=== PATIENT | female | born 1960 | race Native Hawaiian/Other Pacific Islander ===

== ENCOUNTER 2023-06-01 12:13 | Outpatient (AMB) | payer OTHER, SELFPAY ==
--- NOTE | 2023-06-01 12:36 | MHC.PC.OV ---
Vital Signs 06/01/23 12:40 Height 5 ft 9 in Weight 259 lb BMI 38.2 BP 158/100 H Blood Pressure Location Lt brachial Position Sitting Intake Visit Reasons: NPV- Medication Intake Note: New patient, medication Fingerprinter Required: No Accompanied by: Self / Same As Patient Allergies codeine Adverse Reaction (Intermediate, Verified 06/01/23 12:58) chills Medication List - Last Reconciled 06/01/23 by Claire Rodriguez MD gabapentin 300 mg PO TID omeprazole 20 mg PO DAILY Tobacco use date assessed: 06/01/23 Dental Screening Dental Screen Date: 06/01/23 Did you have a dental visit in the last 12 months?: No Did you have a dental problem in the last 6 months where you did not have access to dental care?: No Was dental information given to patient?: No HPI HPI Comments History of Present Illness Details This is a 62-year-old female with fibromyalgia, chronic GERD, obesity and thalassemia trait that comes today to establish care. She complains over right upper quadrant abdominal pain that happens when she bends forward and has history of cholecystectomy. She also has diffuse joint pain secondary to fibromyalgia stable with gabapentin as needed. Complains of bilateral hand pain and some trigger fingers. Had nerve conduction study about a year ago and would like Ortho referral for this matter. No chest pain or shortness of breath. She is obese with a BMI of 38.2 and was advised to diet and exercise to reach BMI goal less than 30. GERD stable with PPIs. Colonoscopy was about 8-9 years ago. Mammogram and bone density was over a year ago. Pap smear was about 4-5 years ago. COUNTS INCLUDE 234 BEDS AT THE [facility] Surgical History History of cholecystectomy History of tubal ligation Family History Father Diabetes Hypertension Stroke Heart murmur Mother Diabetes Hypertension Bursitis Tendonitis Arthritis Family/Other Substance use disorder Social History Housing: House Alcohol intake: current Alcohol intake frequency: holidays/special occasions only Alcohol type: other Patient Tobacco Use Status: Never used Tobacco e-Cigarette/Vaping Use: Never Used Second Hand Smoke Exposure: No service: No Current occupational status: employed Current occupational exposures/hazards: No Cognitive needs: No Hearing needs: No Vision needs: Yes Questionnaire PHQ-9 Over the last 2 weeks, how often have you been bothered by any of the following problems? 1. Little interest or pleasure in doing things: not at all 2. Feeling down, depressed, or hopeless: several days 3. Trouble falling or staying asleep, or sleeping too much: nearly every day 4. Feeling tired or having little energy: several days 5. Poor appetite or overeating: not at all 6. Feeling bad about yourself - or that you are a failure or have let yourself or your family down: not at all 7. Trouble concentrating on things, such as reading the newspaper or watching television: several days 8. Moving or speaking so slowly that other people could have noticed. Or the opposite - being so fidgety or restless that you have been moving around a lot more than usual: not at all 9. Thoughts that you would be better off or of hurting yourself in some way: not at all Total score: 6 Depression Screening Interpretation: Positive Depression Screening Follow-up: Existing condition 64122 - PHQ-9 Billing: Yes Source: Developed by Drs. Ronak Hull, Calista Bolden, Karlo Palma and colleagues, with an educational robby from [employer]. JYOTSNA-7 AMB Questionnaire JYOTSNA-7 Date JYOTSNA - 7 assessed: 06/01/23 Feeling nervous, anxious, or on edge: 2 = More than half the days Not being able to stop or control worryin = Not at all Worrying too much about different things: 2 = More than half the days Trouble relaxin = Several days Being so restless that it is hard to sit still: 0 = Not at all Becoming easily annoyed or irritable: 1 = Several days Feeling afraid as if something awful might happen: 0 = Not at all Total JYOTSNA-7 score (0-4 normal; 5-9 mild; 10-14 moderate; 15-21 severe): 6 Source: Developed by Drs. Ronak Hull, Calista Bolden, Karlo Palma and colleagues, with an educational robby from [employer]. JYOTSNA-7 Assessment Billing JYOTSNA-7 Assessment Tool: JYOTSNA-7 Assessment 58048 Review of Systems Const All systems reviewed & are unremarkable except as noted in HPI and below Eyes Reports no additional complaints, Denies change in vision and Denies other visual disturbances Card Denies chest pain at rest, Denies chest pain with activity, Denies edema, Denies irregular heart rhythm, Denies claudication, Denies dyspnea, Denies dyspnea on exertion, Denies orthopnea, Denies paroxysmal nocturnal dyspnea and Denies slow heart rate Resp Denies cough, Denies dyspnea and Denies dyspnea on exertion GI Reports abdominal pain, Denies change in bowel habits, Denies excessive flatus, Reports diarrhea, Denies nausea and Denies vomiting Denies urinary incontinence, Denies urinary hesitancy and Denies urinary urgency Musc Denies abnormal gait, Denies atrophy, Denies deformity, Reports arthralgias, Denies limited range of motion and Reports numbness Skin/Breast Denies bleeding lesions, Denies changing lesions and Denies rash Neuro Denies abnormal gait, Denies lack of coordination and Reports numbness Physical exam (Primary Care) Vital Signs: Last Vital Signs BP 158/100 H 06/01/23 12:40 BMI result Body Mass Index 38.2 Tobacco/Smoking Status: Tobacco use Status Tobacco use date assessed 06/01/23 06/01/23 12:51 Patient Tobacco Use Status Never used Tobacco 06/01/23 12:51 e-Cigarette/Vaping Use Never Used 06/01/23 12:51 PHQ-9: PHQ-9 Score PHQ-9: Total score 6 06/01/23 12:51 Depression Screening Interpretation: Positive Depression Screening Follow-up: Existing condition Eyes General: appearance normal, both eyes and all related structures Eyelids: Yes eyelids normal Conjunctivae: conjunctivae normal Neck Neck: Yes normal visual inspection and Yes supple Resp Effort & Inspection: normal respiratory effort Auscultation: clear to auscultation bilaterally Cardio Jugular venous distension: no JVD Rate: regular rate Rhythm: regular rhythm Heart sounds: S1 normal heart sound present and S2 normal heart sound present Extrem General: Yes full ROM Assessment and Plan Assessment & Plan (1) Chronic GERD: Code(s): K21.9 - Gastro-esophageal reflux disease without esophagitis Plan: Continue PPIs (2) Class 2 obesity with body mass index (BMI) of 38.0 to 38.9 in adult: Code(s): E66.9 - Obesity, unspecified; Z68.38 - Body mass index [BMI] 38.0-38.9, adult Plan: Start diet and exercise. BMI goal is less than 30. (3) Fibromyalgia: Code(s): M79.7 - Fibromyalgia Plan: Continue gabapentin (4) Right upper quadrant abdominal pain: Code(s): R10.11 - Right upper quadrant pain Plan: Ultrasound ordered (5) Thalassemia trait: Code(s): D56.3 - Thalassemia minor Plan: Labs ordered Orders: Orders US abdomen comp w elastography Today R10.11 - Right upper quadrant pain Comprehensive Crozier. Panel Fast Today E66.9 - Obesity, unspecified, Z68.38 - Body mass index [BMI] 38.0-38.9, adult IRON PROFILE Today D56.3 - Thalassemia minor, D64.9 - Anemia, unspecified Lipid Panel Today E66.9 - Obesity, unspecified, E78.5 - Hyperlipidemia, unspecified, Z68.38 - Body mass index [BMI] 38.0-38.9, adult Thyroid Stimulating Hormone Today E66.9 - Obesity, unspecified, Z68.38 - Body mass index [BMI] 38.0-38.9, adult Vitamin D 25-OH Total Today E55.9 - Vitamin D deficiency, unspecified Complete Blood Count Auto Diff Today D56.3 - Thalassemia minor, D64.9 - Anemia, unspecified XR DEXA axial skeleton Today N95.9 - Unspecified menopausal and perimenopausal disorder MM screening mammo BI Today Z12.31 - Encounter for screening mammogram for malignant neoplasm of breast Hemoglobin Electrophoresis Today D56.3 - Thalassemia minor Reticulocyte Count Today D56.3 - Thalassemia minor Referrals CAUSTIC PREPARER Referral Z12.4 - Encounter for screening for malignant neoplasm of cervix Orthopedics Referral M65.30 - Trigger finger, unspecified finger Coding Level of Care Code New Pt Level 4 (95237) Diagnoses Chronic GERD K21.9 Class 2 obesity with body mass index (BMI) of 38.0 to 38.9 in adult E66.9; Z68.38 Fibromyalgia M79.7 Right upper quadrant abdominal pain R10.11 Thalassemia trait D56.3 Additional Codes JYOTSNA-7 Assessment Billing - JYOTSNA-7 Assessment Tool: JYOTSNA-7 Assessment 33470 ([id number]) Time Spent (min) 24
[2023-06-01 12:40] VITALS: BP 158/100; BMI 38.2
== END 2023-06-01 13:12 | disposition home or self-care (01) ==
PROVIDERS: PCP Internal Medicine; Visit Provider Internal Medicine
DX: K21.9 Gastro-esophageal reflux disease without esophagitis (principal); E66.9 Obesity, unspecified; Z68.38 Body mass index [BMI] 38.0-38.9, adult; M79.7 Fibromyalgia; R10.11 Right upper quadrant pain; D56.3 Thalassemia minor
CPT/HCPCS: 99204

== ENCOUNTER 2023-06-22 09:20 | Outpatient (REF) | payer OTHER, SELFPAY ==
--- NOTE | ~2023-06-22 | US_ITS ---
EXAMINATION: US COMPLETE ABDOMEN WITH LIVER ELASTOGRAPHY CLINICAL INFORMATION: Morbid obesity. COMPARISON: None available. TECHNIQUE: Real-time imaging of the abdominal viscera. Noninvasive ultrasound liver fibrosis assessment is performed using Gurdeep ElastPQ point quantification shear wave elastography (2D-SWE) with a C5-2 MHz transducer. Multiple elastography samples are obtained. FINDINGS: PANCREAS: Normal. The visualized pancreatic head and body are normal in appearance. The remainder of the pancreas is obscured from visualization by the overlying bowel gas. ABDOMINAL AORTA: The proximal, middle, and distal aortic segments are normal in caliber. INFERIOR VENA CAVA: Visualized portions are normal. LIVER: Normal. The liver demonstrates normal size, contour and echogenicity. No focal lesion or intrahepatic biliary duct dilatation. The right lobe measures 14.5 cm in length. The left lobe measures 12.5 cm in length. Portal flow is towards the liver (hepatopetal). Shear wave liver elastography median stiffness is 1.3 m/s (reference: normal median stiffness is 1.3 m/s or less). IQR/median stiffness to assess sampling precision is 0.09 (reference: good quality data set is IQR/median stiffness of 0.15 or less). GALLBLADDER: Surgically absent. COMMON BILE DUCT: Normal in caliber measuring 0.8 cm in diameter. RIGHT KIDNEY: Normal. No hydronephrosis. No renal calculi or focal parenchymal lesions. The kidney measures 10.8 cm in maximum dimension. LEFT KIDNEY: Normal. No hydronephrosis. No renal calculi or focal parenchymal lesions. The kidney measures 10.1 cm in maximum dimension. SPLEEN: Normal. The spleen measures 9 point cm in maximum dimension. FREE FLUID: None. US/US abdomen comp w elastography IMPRESSION: 1. There is generalized increase in hepatic echotexture, consistent with fatty infiltration or hepatocellular disease. Please correlate clinically. No focal hepatic mass or intrahepatic biliary dilatation is seen. 2. Liver elastography: In the absence of other known clinical signs, measurements rule out compensated advanced chronic liver disease. If there are known clinical signs, further testing may be needed for confirmation. REFERENCE: Society of Radiologists in Ultrasound Liver Stiffness Thresholds (2020): LIVER STIFFNESS THRESHOLDS: *Liver Stiffness equal or less than 1.3 m/s: High probability of being normal. *Liver Stiffness less than 1.7 m/s: In the absence of other known clinical signs, rules out compensated advanced chronic liver disease. *Liver Stiffness 1.7-2.1 m/s: Suggestive of compensated advanced chronic liver disease but need further test for confirmation. *Liver Stiffness over 2.1 m/s: Rules in compensated advanced chronic liver disease. *Liver Stiffness over 2.4 m/s: Suggestive of clinically significant portal hypertension. QUALITY OF DATA SET: *IQR/Median value equal or less than 0.15 implies a quality data set. *IQR/Median value over 0.15 implies a poor quality data set. SIGNIFICANT CHANGE FROM PRIOR EXAM: Significant change if liver stiffness measurement is 10% or greater from prior exam. OTHER CONSIDERATIONS: The stage of liver fibrosis may be overestimated in the setting of acute hepatitis, liver inflammation, elevated liver function tests, hepatic vascular congestion, obstructive cholestasis, non-fasting state, and infiltrative diseases such as amyloidosis and lymphoma. In some patients with NAFLD, the liver stiffness thresholds for compensated advanced chronic liver disease may be lower. In causes other than viral hepatitis and NAFLD, liver stiffness thresholds are not well established.
[2023-06-22 10:44] LABS: MANUAL DIFF FLAG NO
[2023-06-22 11:53] LABS: Basophils Percent Auto 0.4 % (0-2); Eosinophils Absolute Auto 0.2 X10*3/uL (0.0-0.4); Hemoglobin 11.3 g/dl (12.0-16.0); Imm Gran Abs Auto 0.03 X10*3/uL (0.00-0.03); Imm Gran Pct Auto 0.4 % (0.0-0.4); Immature Retic Fraction 23.5 % (3.0-15.9); Lymphocytes Percent Auto 29.6 % (20-40); Mean Corpuscular HGB Conc 29.7 g/dl (31.0-35.0); Mean Corpuscular Hemoglobin 21.5 pg (27.0-33.0); Mean Corpuscular Volume 72.2 fL (80.0-98.0); Mean Platelet Volume 10.3 fL (9.4-12.3); Monocytes Absolute Auto 0.6 X10*3/uL (0.1-1.2); Neutrophils Percent Auto 57.6 % (45-73); Platelet Count 306 X10*3/uL (160-400); Red Blood Count 5.26 X10*6/uL (4.20-5.50); Red Cell Distribution Width 18.5 % (11.0-16.0); Retic HGB Equivalent 25.7 pg (30.0-35.0); Reticulocyte Percent 1.6 % (0.5-1.8); Reticulocytes Absolute 0.084 X10*6/uL (0.026-0.095); White Blood Count 6.9 X10*3/uL (4.8-10.8)
[2023-06-22 12:33] LABS: Alanine Aminotransferase 15 U/L (0-31); Albumin Level 4.2 g/dL (3.5-5.0); Alkaline Phosphatase 72 U/L (39-117); Anion Gap 14 (12-20); Aspartate Amino Transferase 16 U/L (5-31); Bilirubin Total 0.5 mg/dL (0.0-1.0); Blood Urea Nitrogen 14 mg/dL (9-16); Calcium 9.4 mg/dL (8.4-10.2); Carbon Dioxide 24 mmol/L (22-29); Chloride 106 mmol/L (96-108); Cholesterol 183 mg/dL; Estimated Glomerular Filt Rate 47; Glucose Fasting 92 mg/dL (60-99); HDL Cholesterol 48 mg/dL; Iron 75 mcg/dL (30-160); LDL Cholesterol Calculated 118 mg/dl; Percent Iron Saturation 28 % (15-50); Potassium 4.1 mmol/L (3.3-5.1); Sodium 140 mmol/L (135-145); Total Iron Binding Capacity 265 mcg/dL (228-428); Total Protein 7.6 g/dL (6.5-8.0); Triglycerides 86 mg/dL; Unsaturated Iron Binding 190 ug/dL
[2023-06-22 12:54] LABS: Thyroid Stimulating Hormone 1.85 uIU/mL (0.32-4.0); Vitamin D 25-OH Total 23.6 ng/mL (>30)
[2023-06-25 17:18] LABS: Hematocrit 36.1 % (35.0-45.0); Hemoglobin 11.3 g/dL (11.7-15.5); MCH 21.8 pg (27.0-33.0); MCV 69.6 fL (80.0-100.0); RBC 5.19 Million/uL (3.80-5.10); RDW 17.1 % (11.0-15.0)
== END 2023-06-22 09:21 | disposition home or self-care (01) ==
LOC: HO.US 09:20
PROVIDERS: PCP Internal Medicine; Visit Provider Internal Medicine
DX: R10.11 Right upper quadrant pain (principal); E66.9 Obesity, unspecified; Z68.38 Body mass index [BMI] 38.0-38.9, adult; E78.5 Hyperlipidemia, unspecified; E55.9 Vitamin D deficiency, unspecified; D56.3 Thalassemia minor; D64.9 Anemia, unspecified
CPT/HCPCS: 36415; 76705; 76981; 80053; 80061; 82306; 83020; 83540; 84443; 85014; 85018; 85025; 85041; 85045

== ENCOUNTER 2023-06-24 16:20 | Outpatient (AMB) | payer OTHER, SELFPAY ==
[2023-06-24 16:33] VITALS: BP 162/92; PULSE 83; O2SAT 97; BMI 37.8
--- NOTE | 2023-06-24 16:33 | MHC.PC.OV ---
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 Accompanied by: Self / Same As Patient Allergies codeine Adverse Reaction (Intermediate, Verified 06/24/23 16:59) chills Medication List - Last Reconciled 06/24/23 by Claire Rodriguez MD gabapentin 300 mg PO TID omeprazole 20 mg PO DAILY Tobacco use date assessed: 06/01/23 Dental Screening Dental Screen Date: 06/24/23 Did you have a dental visit in the last 12 months?: No Did you have a dental problem in the last 6 months where you did not have access to dental care?: Yes Was dental information given to patient?: Patient has dentist HPI HPI Comments History of Present Illness Details This is a 62-year-old female with fibromyalgia still complains right upper quadrant abdominal pain occasionally associated with diarrhea been present for few months. She had cholecystectomy in the past. Ultrasound shows fatty liver versus hepatocellular disease but her liver enzymes are normal. I will refer her to Gastroenterology and order cholestyramine as needed for her diarrhea. Fibromyalgia still present and she admits not taking gabapentin a medically basis due to fatigue and tiredness. No chest pain or shortness of breath. Blood pressure is elevated and will be recheck in 3 weeks by nurse navigator. [facility] Surgical History History of cholecystectomy History of tubal ligation Family History Father Diabetes Hypertension Stroke Heart murmur Mother Diabetes Hypertension Bursitis Tendonitis Arthritis Family/Other Substance use disorder Social History Housing: House Alcohol intake: current Alcohol intake frequency: holidays/special occasions only Alcohol type: other Patient Tobacco Use Status: Never used Tobacco e-Cigarette/Vaping Use: Never Used Second Hand Smoke Exposure: No service: No Current occupational status: employed Current occupational exposures/hazards: No Cognitive needs: No Hearing needs: No Vision needs: Yes Questionnaire JYOTSNA-7 AMB Questionnaire JYOTSNA-7 Date JYOTSNA - 7 assessed: 06/01/23 Source: Developed by Drs. Ronak Hull, Calista Bolden, Karlo Palma and colleagues, with an educational robby from [employer]. Review of Systems Const All systems reviewed & are unremarkable except as noted in HPI and below Eyes Reports no additional complaints, Denies change in vision and Denies other visual disturbances Card Denies chest pain at rest, Denies chest pain with activity, Denies edema, Denies irregular heart rhythm, Denies claudication, Denies dyspnea, Denies dyspnea on exertion, Denies orthopnea, Denies paroxysmal nocturnal dyspnea and Denies slow heart rate Resp Denies cough, Denies dyspnea and Denies dyspnea on exertion GI Reports abdominal pain, Denies change in bowel habits, Denies excessive flatus, Reports diarrhea, Denies nausea and Denies vomiting Denies urinary incontinence, Denies urinary hesitancy and Denies urinary urgency Musc Denies abnormal gait, Denies atrophy, Denies deformity and Denies limited range of motion Skin/Breast Denies bleeding lesions, Denies changing lesions and Denies rash Neuro Denies abnormal gait and Denies lack of coordination Physical exam (Primary Care) Vital Signs: Last Vital Signs Pulse 83 06/24/23 16:33 BP 160/90 H 06/24/23 17:25 Pulse Ox 97 06/24/23 16:33 Oxygen Delivery Method Room Air 06/24/23 16:33 BMI result Body Mass Index 37.8 Tobacco/Smoking Status: Tobacco use Status Tobacco use date assessed 06/01/23 06/24/23 16:34 Patient Tobacco Use Status Never used Tobacco 06/24/23 16:34 e-Cigarette/Vaping Use Never Used 06/24/23 16:34 Eyes General: appearance normal, both eyes and all related structures Eyelids: Yes eyelids normal Conjunctivae: conjunctivae normal Neck Neck: Yes normal visual inspection and Yes supple Resp Effort & Inspection: normal respiratory effort Auscultation: clear to auscultation bilaterally Cardio Jugular venous distension: no JVD Rate: regular rate Rhythm: regular rhythm Heart sounds: S1 normal heart sound present and S2 normal heart sound present GI Palpation (GI): Soft to palpation and Tenderness to palpation present (GI) in the RUQ Extrem General: Yes full ROM Results AMB Urinalysis, Automated UA Leukoctes 0 Layla/uL Last Edit by VENANCIO Villegas on 06/24/23 17:06 UA Nitrite Negative Last Edit by VENANCIO Villegas on 06/24/23 17:06 UA Urobilinogen 0.2 mg/dL Last Edit by VENANCIO Villegas on 06/24/23 17:06 UA Protein 0 mg/dL Last Edit by VENANCIO Villegas on 06/24/23 17:06 UA pH 6.0 Last Edit by VENANCIO Villegas on 06/24/23 17:06 UA Blood 0 Chago/uL Last Edit by VENANCIO Villegas on 06/24/23 17:06 UA Specific Hamer 1.030 Last Edit by VENANCIO Villegas on 06/24/23 17:06 UA Ketone Negative Last Edit by VENANCIO Villegas on 06/24/23 17:06 UA Bilirubin 0 mg/dL Last Edit by VENANCIO Villegas on 06/24/23 17:06 UA Glucose 0 mg/dL Last Edit by VENANCIO Villegas on 06/24/23 17:06 Results Reviewed Results Reviewed: Laboratory Last Values Urine pH (Auto) 6.0 06/24/23 16:53 Specific Hamer (Auto) 1.030 06/24/23 16:53 Urine Protein (Auto) 0 mg/dL 06/24/23 16:53 Glucose (UA)(Auto) 0 mg/dL 06/24/23 16:53 Urine Ketones (Auto) Negative 06/24/23 16:53 Urine Blood (Auto) 0 Chago/uL 06/24/23 16:53 Urine Nitrite (Auto) Negative 06/24/23 16:53 Urine Bilirubin (Auto) 0 mg/dL 06/24/23 16:53 Urine Urobilinogen (Auto) 0.2 mg/dL 06/24/23 16:53 Leukocyte Esterase (Auto) 0 Layla/uL 06/24/23 16:53 Assessment and Plan Assessment & Plan (1) Right upper quadrant abdominal pain: Code(s): R10.11 - Right upper quadrant pain Plan: Referred to Gastroenterology (2) Fibromyalgia: Code(s): M79.7 - Fibromyalgia Plan: Continue gabapentin Orders: Orders AMB Urinalysis Automated Today R10.9 - Unspecified abdominal pain Referrals Gastroenterology Referral R10.11 - Right upper quadrant pain Medications: New cholestyramine (with sugar) 4 gram administer w/meal; avoid other meds within 1hr before or 4-6hr after dose 4 grams PO DAILY PRN 60 ea 0RF diarrhea 60 days Coding Level of Care Code Est Pt Level 3 (29793) Diagnoses Right upper quadrant abdominal pain R10.11 Fibromyalgia M79.7 Time Spent (min) 19
[2023-06-24 17:25] VITALS: BP 160/90
== END 2023-06-24 17:08 | disposition home or self-care (01) ==
PROVIDERS: PCP Internal Medicine; Visit Provider Internal Medicine
DX: R10.11 Right upper quadrant pain (principal); M79.7 Fibromyalgia; R10.9 Unspecified abdominal pain
CPT/HCPCS: 81003; 99213

== ENCOUNTER 2023-07-15 10:02 | Outpatient (AMB) | payer OTHER, SELFPAY ==
--- NOTE | 2023-07-15 10:16 | MHC.OFFVIS ---
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 presents today for her left thumb, middle and ring finger. States she is experiencing pain in wrist that radiates to her forearm. Also mentioned that she notices her finger go side ways when she is carrying a heavy bag, has difficulty grabbing, and twisting of wrist. This has been ongoing for the last 13 yrs and has gotten worse over time. Also has numbness that increases at night time. 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 She complains primarily of pain in the dorsal aspect of her left hand which extends dorsally up her wrist and the entire length of her left forearm. She says this pain is worse with more frequent activities. She says this pain has been present for ~10 years and has been worsening over the last ~2 years. The pain radiates up into her shoulder at times. She complains of occasional cramping in her hands from overuse, particularly typing for long periods or while driving a car. She denied numbness and tingling in her hands She reports a previous NCS about 2-3 years ago which did not show any carpal or cubital tunnel syndrome She has a hx of Fibromyalgia and cervical and lumbar spondylosis [facility] Surgical History History of cholecystectomy History of tubal ligation Family History Father Diabetes Hypertension Stroke Heart murmur Mother Diabetes Hypertension Bursitis Tendonitis Arthritis Family/Other Substance use disorder Social History Housing: House Alcohol intake: current Alcohol intake frequency: holidays/special occasions only Alcohol type: other Patient Tobacco Use Status: Never used Tobacco e-Cigarette/Vaping Use: Never Used Second Hand Smoke Exposure: No service: No Current occupational status: employed Current occupational exposures/hazards: No Cognitive needs: No Hearing needs: No Vision needs: Yes Review of Systems Const All systems reviewed & are unremarkable except as noted in HPI and below Physical Exam Vital Signs: BMI result Body Mass Index 37.7 Const General: cooperative, healthy appearing and no acute distress Orientation/consciousness: patient oriented x3 HEENT Head: Yes normocephalic and Yes atraumatic Eyes EOM: EOMs intact bilaterally Resp Effort & Inspection: normal respiratory effort and able to speak in complete sentences Cardio Jugular venous distension: no JVD Skin General skin exam: turgor normal Rashes: no rashes Neuro General: patient oriented x3 Extrem Other: Evaluation of Left Upper Extremity: The patient is alert, oriented, and in no acute distress Neuro: Median, Ulnar, Radial nerves motor and sensory intact and sensation is normal to the tips of all digits Vascular: Cap refill brisk ROM: She can make a fist and extend all her digits No locking or catching Mild discomfort in the dorsal forearm with resisted wrist extension Minimal discomfort with resisted finger extension No pain with resisted wrist flexion No pain with resisted finger flexion She was most tender over the finger and wrist extensor muscle bellies in the dorsal forearm. She was not particularly tender over the extensor origin just distal to the lateral epicondyle. She has some mild tenderness over the finger and wrist extensor tendons in the distal forearm. There is no swelling in this area. She had smooth and painful active use of the tendons with active wrist and finger extension. Smooth and symmetrical wrist flexion extension and prono-supination that did not appear to be particularly painful. She did have some discomfort in the dorsal forearm when she was bring her left wrist into full flexion. Skin: No lacerations or abrasions. General: No Ecchymosis. No Erythema or evidence of infection. Psych Appearance: grossly normal Affect: normal affect Attitude: cooperative Assessment & Plan Assessment & Plan (1) Left arm pain: Code(s): M79.602 - Pain in left arm (2) Cramping of hands: Code(s): R25.2 - Cramp and spasm Plan Assessment & Plan: 1. Left dorsal forearm pain, muscular and musculotendinous Worse with activities Not particularly tender over the extensor origin Mild discomfort with resisted wrist extension and no pain with resisted finger extension Mild nonfocal tenderness over dorsal wrist and finger extensors in the distal forearm 2. 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 I educated her about these conditions Do not see any operative indications or indications for injections at this time. I ordered OT hand therapy to work on stretching & strengthening exercises I discussed activity modification, she should limit or avoid any activities which cause her pain She can follow up p.r.n. Scribed for Katarina Amado MD by Joao Nava, medical pathology teacher, on 07/15/23 at 11:10 AM, EST. Coding Level of Care Code New Pt Level 4 (22269) Diagnoses Left arm pain M79.602 Cramping of hands R25.2
[2023-07-15 10:17] VITALS: BMI 37.7
== END 2023-07-15 11:12 | disposition home or self-care (01) ==
PROVIDERS: PCP Internal Medicine; Visit Provider Orthopaedic Surgery
DX: M79.602 Pain in left arm (principal); R25.2 Cramp and spasm
CPT/HCPCS: 99203

== ENCOUNTER → 2023-07-15 10:02 | Outpatient (BNVA) | payer OTHER, SELFPAY | PROVIDERS: PCP Internal Medicine; Visit Provider Orthopaedic Surgery ==

== ENCOUNTER 2023-07-16 08:55 | Outpatient (REF) | payer OTHER, SELFPAY ==
--- NOTE | ~2023-07-16 | MM_ITS ---
EXAMINATION: BONE DENSITOMETRY CLINICAL INDICATION: Menopause. COMPARISON: This is the patient's baseline examination. TECHNIQUE: Using a BrightEdge DXA System (software version: 13.1) manufactured by [employer], dual-energy x-ray absorptiometry was performed of the lumbar spine and left hip. The images are of good technical quality. Summary results are attached. FINDINGS: LEFT FEMUR, NECK: BMD 0.985 g/cm2, Z-score 0.1, T-score -0.4, normal. LEFT FEMUR, TOTAL: BMD 1.004 g/cm2, Z-score 0.1, T-score 0.0, normal. AP SPINE L1-L4: BMD 1.426 g/cm2, Z-score 2.2, T-score 2.1, normal. IDENTIFIED RISK FACTORS: Menopause, height loss. HISTORY OF FRACTURE: None listed. MEDICATIONS: Multivitamin. MM/XR DEXA axial skeleton IMPRESSION: 1. DIAGNOSIS: Normal bone density based on the lowest T-score value of -0.4 in the femoral neck applying World Health Organization criteria. 2. 10-YEAR FRACTURE RISK PREDICTION, FRAX: According to the guidelines, FRAX calculation should only be performed on patients in the osteopenia bone density category. Therefore, FRAX was not performed on this patient. 3. Treatment Recommendations: NOF guidelines recommend consideration for treatment in postmenopausal women and men age 50 and older presenting with the following: -A hip or vertebral (clinical or morphometric) fracture. -T-score less than or equal to -2.5 at the femoral neck or spine after appropriate evaluation to exclude secondary causes. -Low bone mass at the hip or spine and a 10-year fracture probability by FRAX of greater than or equal to 3% for hip fracture or greater than or equal to 20% for major osteoporotic fracture based on the [place] adapted WHO algorithm. 4. Other Recommendations: All treatment decisions require clinical judgment and consideration of individual patient factors, including patient preferences, comorbidities, previous drug use, risk factors not captured in the FRAX model (e.g. frailty, falls, vitamin D deficiency, increased bone turnover, interval significant decline in bone density) and possible under or overestimation of fracture risk by FRAX. FUTURE SCAN RECOMMENDATION: People with diagnosed cases of osteoporosis or at high risk for fracture should have regular bone mineral density tests. For patients eligible for Medicare, routine testing is allowed once every 2 years. The testing frequency can be increased to one year for patients who have rapidly progressing disease, those who are receiving or discontinuing medical therapy to restore bone mass, or have additional risk factors.
--- NOTE | ~2023-07-16 | MM_ITS ---
EXAMINATION: MM SCREENING DIGITAL BREAST TOMOSYNTHESIS, BILATERAL CLINICAL INFORMATION: Screening. Asymptomatic. COMPARISON: Mammography: This study is compared with prior exams dating back to 2013. TECHNIQUE: Digital breast tomosynthesis is performed in both the craniocaudal and mediolateral oblique views along with computer-aided detection (CAD). Synthesized 2D images are generated from the tomosynthesis. FINDINGS: There are scattered areas of fibroglandular density (ACR BI-RADS breast composition Category b). There are no significant masses, abnormal calcifications, or other abnormalities. MM/MM tomosynthesis screening BI IMPRESSION: No mammographic evidence of malignancy. ASSESSMENT: BI-RADS BI-RADS 1 - Negative RECOMMENDATION: Routine annual mammography screening. 1 year F/U This examination should not preclude the clinical evaluation of a suspicious palpable abnormality. This patient's information was entered into a reminder system with a target due date for their next mammogram.
== END 2023-07-16 08:56 | disposition home or self-care (01) ==
LOC: HO.MAMMO 08:55
PROVIDERS: PCP Internal Medicine; Visit Provider Internal Medicine
DX: Z12.31 Encounter for screening mammogram for malignant neoplasm of breast (principal); Z13.820 Encounter for screening for osteoporosis; Z78.0 Asymptomatic menopausal state
CPT/HCPCS: 77063; 77067; 77080

== ENCOUNTER → 2023-07-16 09:15 | Outpatient (BNV) | payer OTHER, SELFPAY | PROVIDERS: PCP Internal Medicine; Visit Provider Radiology Diagnostic Radiology | DX: Z12.31 Encounter for screening mammogram for malignant neoplasm of breast (principal) | CPT/HCPCS: 77063; 77067; 77080 ==

== ENCOUNTER 2023-08-14 11:18 | Outpatient (AMB) | payer OTHER, SELFPAY ==
[2023-08-14 11:25] VITALS: BP 134/72; PULSE 88; BMI 36.8
--- NOTE | 2023-08-14 11:25 | A.OFFVIS_ITS ---
Intake Vital Signs 08/14/23 11:25 Height 5 ft 9.5 in Weight 253 lb BMI 36.8 BP 134/72 Blood Pressure Location Lt brachial Position Sitting Pulse 88 Intake Visit Reasons: Right upper quadrant pain Intake Note: Patient new consult for RUQ pain. Patient cc: RUQ pain with a lump, Nauseas on and off, GERD, diarrhea and abdominal bloating on and off. Denies any other GI issues. Line Builder Required: No Accompanied by: Self / Same As Patient Allergies codeine Adverse Reaction (Intermediate, Verified 08/14/23 11:24) chills HPI Right upper quadrant pain HPI Details 63-year-old female with past medical his tory of migraines, thalassemia trait, lumbar spine the low cysts, fibromyalgia, obesity, chronic GERD, anemia is here today for initial consultation. Patient will send to us by her PCP for evaluating her right upper quadrant discomfort. Patient reports that her grandmother had stomach cancer and her father had pre cancerous polyps. Patient had colonoscopy 5 years ago at [facility] that was normal no polyps found. Patient had cholecystectomy about 10 years ago. Also 10 years ago patient was diagnosed with H pylori and treated with antibiotics. Currently patient reports right upper quadrant pain that is not related to food. Patient states that sometimes the pain is so strong that she can not even bend over. Sometimes the pain wakes her up and she has to be in a certain position to feel better. Patient denies any nausea or vomiting. Patient reports that she moves her bowels every morning after she has coffee. Usually few bowel movements more on the loose side. Occasionally patient reports that she will get bloated depending on what she eats. Patient denies acid reflux at this time. Patient denies having pain anywhere also except for right upper quadrant. Patient denies melena, hematochezia, unintentional weight loss or ribbon like stools. Patient denies dyspepsia, dysphagia or odynophagia. Patient had ultrasound with elastography ordered by PCP on July 16 that show hepatic steatosis, normal CBD and no other acute findings. [facility] Surgical History History of cholecystectomy History of tubal ligation Family History Father Diabetes Hypertension Stroke Heart murmur Mother Diabetes Hypertension Bursitis Tendonitis Arthritis Family/Other Substance use disorder Social History Housing: House Alcohol intake: current Alcohol intake frequency: holidays/special occasions only Alcohol type: other Patient Tobacco Use Status: Never used Tobacco e-Cigarette/Vaping Use: Never Used Second Hand Smoke Exposure: No service: No Current occupational status: employed Current occupational exposures/hazards: No Cognitive needs: No Hearing needs: No Vision needs: Yes Review of Systems Const Denies weight gain and Denies weight loss ENT Reports no additional complaints, Denies dysphagia and Denies odynophagia Card Reports no additional complaints Resp Reports no additional complaints GI Reports abdominal pain (RUQ), Denies belching, Denies melena, Reports bloating, Denies change in bowel habits, Denies dysphagia, Denies excessive flatus, Denies dyspepsia, Denies heartburn, Denies diarrhea, Reports loose stools, Denies nausea, Denies odynophagia and Denies vomiting Reports no additional complaints Musc Reports no additional complaints Neuro Reports no additional complaints Psych Reports no additional complaints Endo Reports no additional complaints Physical Exam Vital Signs: Last Vital Signs Pulse 88 08/14/23 11:25 BP 134/72 08/14/23 11:25 BMI result Body Mass Index 36.8 Const General: healthy appearing, no acute distress and well developed Nutritional Appearance: obese Orientation/consciousness: patient oriented x3 HEENT Head: Yes normal to inspection, Yes normocephalic and Yes atraumatic Face and sinus: Yes normal facial exam Mouth: Normal oral and palatal mucosa present Throat: Yes posterior oropharynx normal, Yes tonsils normal and Yes uvula midline Eyes General: appearance normal, both eyes and all related structures Neck Neck: Yes normal visual inspection, Yes full ROM and Yes trachea midline Thyroid: Thyroid normal Resp Effort & Inspection: normal respiratory effort, able to speak in complete sentences, no tracheal deviation and symmetric chest movement Auscultation: clear to auscultation bilaterally Cardio Rate: regular rate Heart sounds: S1 normal heart sound present and S2 normal heart sound present GI Inspection: Yes normal to inspection, No distended and Yes obesity Palpation (GI): Soft to palpation, not firm, nontender and No hepatosplenomegaly present Auscultation: Hyperactive bowel sounds present General: Yes no CVA tenderness Back/Spine/Pelvis Back: no CVA tenderness Skin General skin exam: elasticity normal, turgor normal and dry skin Neuro General: patient oriented x3 Psych Appearance: grossly normal Mental Status: mental status grossly normal Speech and movement: Normal speech and movement present Results Reviewed Results Reviewed: ABDOMINAL ULTRASOUND WITH LIVER ELASTOGRAPHY 07/16/2023 FINDINGS: PANCREAS: Normal. The visualized pancreatic head and body are normal in appearance. The remainder of the pancreas is obscured from visualization by the overlying bowel gas. ABDOMINAL AORTA: The proximal, middle, and distal aortic segments are normal in caliber. INFERIOR VENA CAVA: Visualized portions are normal. LIVER: Normal. The liver demonstrates normal size, contour and echogenicity. No focal lesion or intrahepatic biliary duct dilatation. The right lobe measures 14.5 cm in length. The left lobe measures 12.5 cm in length. Portal flow is towards the liver (hepatopetal). Shear wave liver elastography median stiffness is 1.3 m/s (reference: normal median stiffness is 1.3 m/s or less). IQR/median stiffness to assess sampling precision is 0.09 (reference: good quality data set is IQR/median stiffness of 0.15 or less). GALLBLADDER: Surgically absent. COMMON BILE DUCT: Normal in caliber measuring 0.8 cm in diameter. RIGHT KIDNEY: Normal. No hydronephrosis. No renal calculi or focal parenchymal lesions. The kidney measures 10.8 cm in maximum dimension. LEFT KIDNEY: Normal. No hydronephrosis. No renal calculi or focal parenchymal lesions. The kidney measures 10.1 cm in maximum dimension. SPLEEN: Normal. The spleen measures 9 point cm in maximum dimension. FREE FLUID: None. US/US abdomen comp w elastography IMPRESSION: 1. There is generalized increase in hepatic echotexture, consistent with fatty infiltration or hepatocellular disease. Please correlate clinically. No focal hepatic mass or intrahepatic biliary dilatation is seen. 2. Liver elastography: In the absence of other known clinical signs, measurements rule out compensated advanced chronic liver disease. If there are known clinical signs, further testing may be needed for confirmation. Assessment & Plan Assessment & Plan (1) Right upper quadrant abdominal pain: Code(s): R10.11 - Right upper quadrant pain Plan: Right upper quadrant nontender. Status post cholecystectomy. Hyperactive bowel sounds, possible gas trapping pain in hepatic flexure. (2) IBS (irritable bowel syndrome): Code(s): K58.9 - Irritable bowel syndrome without diarrhea Qualifiers: Irritable bowel syndrome type: with both diarrhea and constipation Qualified Code(s): K58.2 - Mixed irritable bowel syndrome Plan: Patient reports occasional postprandial abdominal bloating occasionally patient will have loose stools specially after having coffee in the morning. Patient does admit to have milk in her coffee. Discussed with patient trying lactose free products. Low FODMAP diet discussed with patient. List of food recommended as well as food to avoid given to patient. Will check lipase, GGT, pancreatic insufficiency, transglutaminase and vitamin B12 and folate. (3) Postprandial abdominal bloating: Code(s): R14.0 - Abdominal distension (gaseous) Plan: Occasional postprandial abdominal bloating again as mentioned above discussed with patient avoiding dietary triggers. Patient will be given Citrucel and Senokot to help her evacuate her bowels better. I will see patient in 6 months, sooner on as needed basis. Patient is agreeable to this plan and verbalizes understanding of instructions. She was given the opportunity to ask questions and all questions answered. Thank you for allowing me to participate in her care Orders: Orders H Pylori Breath Test Today Lipase Today R10.9 - Unspecified abdominal pain Gamma Glutamyl Transpeptidase Today R74.8 - Abnormal levels of other serum enzymes Vitamin D 25-OH (D2 and D3) Today E55.9 - Vitamin D deficiency, unspecified Pancreatic Elastase-1 Today R10.9 - Unspecified abdominal pain Transglutaminase Ab IgG Today R10.9 - Unspecified abdominal pain Transglutaminase IgA Today R10.9 - Unspecified abdominal pain Vitamin B12 and Folate Today R19.7 - Diarrhea, unspecified Medications: New methylcellulose (laxative) (Citrucel) take it with full glass of water 500 mg PO DAILY 30 tabs 2RF K59.00 - Constipation, unspecified sennosides (Natural Senna Laxative) 17.2 mg (2 x 8.6 mg) PO BEDTIME 60 tabs 3RF constipation K59.00 - Constipation, unspecified Coding Level of Care Code New Pt Level 4 (73422) Diagnoses Right upper quadrant abdominal pain R10.11 Irritable bowel syndrome with both constipation and diarrhea K58.2 Irritable bowel syndrome type: with both diarrhea and constipation Postprandial abdominal bloating R14.0 Time Spent (min) 45 Comment 30 minutes spent with patient and additional 15 minutes spent reviewing her records
== END 2023-08-14 12:09 | disposition home or self-care (01) ==
PROVIDERS: PCP Internal Medicine; Visit Provider Nurse Practitioner Family
DX: R10.11 Right upper quadrant pain (principal); K58.2 Mixed irritable bowel syndrome; R14.0 Abdominal distension (gaseous)
CPT/HCPCS: 99204

== ENCOUNTER → 2023-08-14 11:18 | Outpatient (BNVA) | payer OTHER, SELFPAY | PROVIDERS: PCP Internal Medicine; Visit Provider Nurse Practitioner Family ==

== ENCOUNTER 2023-09-09 10:37 | Outpatient (REF) | payer OTHER, SELFPAY ==
[2023-09-18 03:38] LABS: Pancreatic Elastase-1 >500 mcg/g
== END 2023-09-09 10:38 | disposition home or self-care (01) ==
LOC: HO.LNP 10:37
PROVIDERS: Visit Provider Nurse Practitioner Family
DX: R10.9 Unspecified abdominal pain (principal); K21.9 Gastro-esophageal reflux disease without esophagitis
CPT/HCPCS: 82656; 87338

== ENCOUNTER 2023-09-23 12:14 | Outpatient (AMB) | payer OTHER, SELFPAY ==
--- NOTE | 2023-09-23 12:21 | A.OFFPC_ITS ---
Vital Signs 09/23/23 12:22 09/23/23 13:21 Height 5 ft 9.5 in Weight 239 lb BMI 34.8 BP 162/96 H 160/90 H Blood Pressure Location Lt brachial Lt brachial Position Sitting Sitting Pulse 91 Pulse Source Pulse Oximeter Pulse Oximetry (%) 100 Oxygen Delivery Method Room Air Intake Visit Reasons: PE/PFMLA Drug Counselor Required: No Accompanied by: Self / Same As Patient Allergies codeine Adverse Reaction (Intermediate, Verified 09/23/23 12:34) chills Medication List - Last Reconciled 09/23/23 by Claire Rodriguez MD bismuth subsalicylate 2 tabs PO QID 14 days cholestyramine (with sugar) 4 gram 4 grams PO DAILY PRN 60 days gabapentin 300 mg PO TID methylcellulose (laxative) (Citrucel) 500 mg PO DAILY metronidazole 1,000 mg (2 x 500 mg) PO BID omeprazole 20 mg PO DAILY sennosides (Natural Senna Laxative) 17.2 mg (2 x 8.6 mg) PO BEDTIME tetracycline 1,000 mg (2 x 500 mg) PO Q12H Tobacco use date assessed: 09/23/23 HPI HPI Comments History of Present Illness Details This is a 63-year-old female with severe depression that comes for her physical exam. Depression has been aggravated by which left house 3 days ago. She has counseling and I will start her on sertraline. At this office visit she is constantly crying. Bone density test was normal. Mammogram done June 2023 was normal. She has an appointment with OBGYN this week for a Pap smear. Last colonoscopy was at [facility] and was normal and she has been follow by Gastroenterology. No suicidal thoughts. Feels that she has loss concen tration at work. I fill out [facility] paperwork to return 01/26/2024. [facility] Surgical History History of cholecystectomy History of tubal ligation Family History (Updated 09/23/23 @ 12:43 by Claire Rodriguez MD) Father Diabetes Hypertension Stroke Heart murmur Mother Diabetes Hypertension Bursitis Tendonitis Arthritis Paternal Grandmother Colon cancer Social History Housing: House Alcohol intake: current Alcohol intake frequency: holidays/special occasions only Alcohol type: other Patient Tobacco Use Status: Never used Tobacco e-Cigarette/Vaping Use: Never Used Second Hand Smoke Exposure: No service: No Current occupational status: employed Current occupational exposures/hazards: No Cognitive needs: No Hearing needs: No Vision needs: Yes Questionnaire PHQ-9 Over the last 2 weeks, how often have you been bothered by any of the following problems? 1. Little interest or pleasure in doing things: nearly every day 2. Feeling down, depressed, or hopeless: nearly every day 3. Trouble falling or staying asleep, or sleeping too much: nearly every day 4. Feeling tired or having little energy: nearly every day 5. Poor appetite or overeating: nearly every day 6. Feeling bad about yourself - or that you are a failure or have let yourself or your family down: nearly every day 7. Trouble concentrating on things, such as reading the newspaper or watching television: nearly every day 8. Moving or speaking so slowly that other people could have noticed. Or the opposite - being so fidgety or restless that you have been moving around a lot more than usual: nearly every day 9. Thoughts that you would be better off or of hurting yourself in some way: not at all Total score: 24 Depression Screening Interpretation: Positive Depression Screening Done: Yes 13629 - PHQ-9 Billing: Yes Source: Developed by Drs. Ronak Hull, Calista Bolden, Karlo Palma and colleagues, with an educational robby from [employer]. AUDIT C Alcohol Use Questionnaire (AUDIT-C) 1. How often do you have a drink containing alcohol?: Monthly or less 2. How many drinks containing alcohol do you have on a typical day when you are drinking?: 1 or 2 (0) 3. How often do you have six or more drinks on one occasion?: Never Total Score: 1 JYOTSNA-7 AMB Questionnaire JYOTSNA-7 Date JYOTSNA - 7 assessed: 09/23/23 Feeling nervous, anxious, or on edge: 3 = Nearly every day Not being able to stop or control worryin = Nearly every day Worrying too much about different things: 3 = Nearly every day Trouble relaxin = Nearly every day Being so restless that it is hard to sit still: 3 = Nearly every day Becoming easily annoyed or irritable: 3 = Nearly every day Feeling afraid as if something awful might happen: 0 = Not at all Total JYOTSNA-7 score (0-4 normal; 5-9 mild; 10-14 moderate; 15-21 severe): 18 Source: Developed by Drs. Ronak Hull, Calista Bolden, Karlo Palma and colleagues, with an educational robby from [employer]. JYOTSNA-7 Assessment Billing JYOTSNA-7 Assessment Tool: JYOTSNA-7 Assessment 70066 Review of Systems Const All systems reviewed & are unremarkable except as noted in HPI and below Eyes Reports no additional complaints, Denies change in vision and Denies other visual disturbances Card Denies chest pain at rest, Denies chest pain with activity, Denies edema, Denies irregular heart rhythm, Denies claudication, Denies dyspnea, Denies dyspnea on exertion, Denies orthopnea, Denies paroxysmal nocturnal dyspnea and Denies slow heart rate Resp Denies cough, Denies dyspnea and Denies dyspnea on exertion GI Denies abdominal pain, Denies change in bowel habits, Denies excessive flatus, Denies nausea and Denies vomiting Denies urinary incontinence, Denies urinary hesitancy and Denies urinary urgency Musc Denies abnormal gait, Denies atrophy, Denies deformity and Denies limited range of motion Skin/Breast Denies bleeding lesions, Denies changing lesions and Denies rash Neuro Denies abnormal gait, Denies behavioral changes, Denies confusion and Denies lack of coordination Psych Reports abnormal sleep pattern, Denies behavioral changes, Denies confusion, Reports depression, Reports difficulty concentrating and Reports anhedonia Physical exam (Primary Care) Vital Signs: Last Vital Signs Pulse 91 09/23/23 12:22 BP 162/96 H 09/23/23 12:22 Pulse Ox 100 09/23/23 12:22 Oxygen Delivery Method Room Air 09/23/23 12:22 BMI result Body Mass Index 34.8 Tobacco/Smoking Status: Tobacco use Status Tobacco use date assessed 09/23/23 09/23/23 12:30 Patient Tobacco Use Status Never used Tobacco 09/23/23 12:21 e-Cigarette/Vaping Use Never Used 09/23/23 12:21 PHQ-9: PHQ-9 Score PHQ-9: Total score 24 09/23/23 12:46 Depression Screening Interpretation: Positive Const General: No confusion Orientation/consciousness: patient oriented x3 and No confusion HENMT Head: Yes normal to inspection, Yes normocephalic and Yes atraumatic Ears: external ears normal Eyes General: appearance normal, both eyes and all related structures Eyelids: Yes eyelids normal Conjunctivae: conjunctivae normal Neck Neck: Yes normal visual inspection and Yes supple Resp Effort & Inspection: normal respiratory effort Auscultation: clear to auscultation bilaterally Cardio Jugular venous distension: no JVD Rate: regular rate Rhythm: regular rhythm Heart sounds: S1 normal heart sound present and S2 normal heart sound present GI Inspection: Yes normal to inspection Palpation (GI): Soft to palpation and nontender Auscultation: normal bowel sounds Skin General skin exam: no rashes or lesions noted Neuro General: patient oriented x3, no focal motor deficits and No confusion Extrem General: Yes full ROM Psych Affect: Sad affect present Assessment and Plan Assessment & Plan (1) Physical exam: Code(s): Z00.00 - Encounter for general adult medical examination without abnormal findings Plan: Repeat in a year (2) Severe depression: Code(s): F32.2 - Major depressive disorder, single episode, severe without psychotic features Plan: Start sertraline. Continue counseling. Return to work 01/26/2024. Orders: Referrals Ophthalmology Referral H53.8 - Other visual disturbances Medications: New cyclosporine 0.05% (Restasis MultiDose) 1 drp ophthalmic (eye) Q12H 30 days 5.5 mL 2RF sertraline 25 mg PO DAILY 30 days 30 tabs 1RF F32.2 - Major depressive disorder, single episode, severe without psychotic features Coding Level of Care Code Est Pt Prev Care 40-64y(59508) Diagnoses Physical exam Z00.00 Severe depression F32.2 Additional Codes JYOTSNA-7 Assessment Billing - JYOTSNA-7 Assessment Tool: JYOTSNA-7 Assessment 97473 ([id number]) Time Spent (min) 34
[2023-09-23 12:22] VITALS: BP 162/96; PULSE 91; O2SAT 100; BMI 34.8
[2023-09-23 13:21] VITALS: BP 160/90
== END 2023-09-23 13:01 | disposition home or self-care (01) ==
PROVIDERS: PCP Internal Medicine; Visit Provider Internal Medicine
DX: Z00.00 Encounter for general adult medical examination without abnormal findings (principal); F32.2 Major depressive disorder, single episode, severe without psychotic features
CPT/HCPCS: 96127; 99396

== ENCOUNTER 2023-09-24 08:58 | Outpatient (REF) | payer OTHER, SELFPAY ==
[2023-09-25 14:36] LABS: H Pylori Breath Test Negative (Negative)
[2023-09-28 11:59] LABS: HPV mRNA E6/E7 rflx Not Detected (Not Detected)
== END 2023-09-24 08:59 | disposition home or self-care (01) ==
LOC: HO.LNP 08:58
PROVIDERS: Nurse Practitioner Family; PCP Internal Medicine; Visit Provider Obstetrics & Gynecology
DX: Z01.419 Encounter for gynecological examination (general) (routine) without abnormal findings (principal); Z11.0 Encounter for screening for intestinal infectious diseases
CPT/HCPCS: 83013; 87624; 88142; 99211

== ENCOUNTER 2023-09-24 08:58 | Outpatient (AMB) | payer OTHER, SELFPAY ==
--- NOTE | 2023-09-24 09:14 | A.OFFVIS_ITS ---
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 No complaints. Last Pap/HPV Last Mammogram was BI-RADS 1 in 07/08 Last Colonoscopy [facility] Medical History GERD (gastroesophageal reflux disease) Surgical History History of cholecystectomy History of tubal ligation Family History Father Diabetes Hypertension Stroke Heart murmur Mother Diabetes Hypertension Bursitis Tendonitis Arthritis Paternal Grandmother Colon cancer Social History Housing: House Alcohol intake: current Alcohol intake frequency: holidays/special occasions only Alcohol type: other Patient Tobacco Use Status: Never used Tobacco e-Cigarette/Vaping Use: Never Used Second Hand Smoke Exposure: No service: No Current occupational status: employed Current occupational exposures/hazards: No Cognitive needs: No Hearing needs: No Vision needs: Yes Female Reproductive History Menstrual Total pregnancies: 4 Full term: 1 Number of Living Children: 3 Date of last pap smear: 07/16/23 Date of Mammogram: 07/16/23 Review of Systems Const All systems reviewed & are unremarkable except as noted in HPI and below Card Reports as per HPI Resp Reports as per HPI GI Reports as per HPI and Reports no additional complaints Reports as per HPI Physical Exam Vital Signs: BMI result Body Mass Index 34.5 Const General: cooperative, healthy appearing and comfortable Chest Chest palpation & inspection: normal inspection of the chest and normal palpation of entire chest wall Breast/axilla inspection: normal inspection of the breasts and normal inspection of the axillae Breast/axilla palpation: normal palpation of the breasts, normal palpation of the axillae and no axillary lymphadenopathy Resp Effort & Inspection: normal respiratory effort Auscultation: clear to auscultation bilaterally Percussion: percussion normal Cardio Palpation: normal PMI Rate: regular rate Rhythm: regular rhythm Heart sounds: no murmurs and no rubs Peripheral pulses: Peripheral pulses 2+ throughout GI Inspection: Yes normal to inspection Palpation (GI): Soft to palpation, nontender, no guarding, not rigid and No hepatosplenomegaly present Percussion: Yes normal to percussion Auscultation: normal bowel sounds Rectal Exam - Female: deferred General: Yes bladder normal to palpation External Female Exam: No lesion Speculum Exam - Vagina: normal appearance of the vagina, normal palpation, normal vaginal discharge and not erythematous Speculum Exam - Cervix: normal appearance of the cervix and normal palpation Bimanual exam- vagina & uterus: normal bimanual exam, normal palpation, uterine size normal, bladder normal to palpation, consistency normal and normal palpation Bimanual Exam- Adnexa, other: normal adnexae, no masses and no tenderness Assessment & Plan Assessment & Plan (1) Well woman exam: Code(s): Z01.419 - Encounter for gynecological examination (general) (routine) without abnormal findings Plan: Co testing done. Counseled the patient about the recommended dietary allowance of 1200 mg of Calcium & 600 IU of vitamin D. Instructions given the patient to schedule her next screening Mammogram in 07/09. The patient is scheduled with GI for screening colonoscopy . The patient was instructed to perform monthly self-breast exams and schedule annual exam in a year. All questions answered and the patient verbalized understanding. Coding Level of Care Code New Pt Prev Care 40-64y(25496) Diagnoses Well woman exam Z01.419
[2023-09-24 09:16] VITALS: BP 136/80; BMI 34.5
== END 2023-09-24 09:36 | disposition home or self-care (01) ==
LOC: HO.HWS 08:59
PROVIDERS: PCP Internal Medicine; Visit Provider Obstetrics & Gynecology
DX: Z01.419 Encounter for gynecological examination (general) (routine) without abnormal findings (principal)
CPT/HCPCS: 99386

== ENCOUNTER 2023-10-02 10:35 | Outpatient (AMB) | payer OTHER, SELFPAY ==
--- NOTE | 2023-10-02 10:39 | A.OFFVIS_ITS ---
Intake Vital Signs 10/02/23 10:49 Height 5 ft 9.5 in Weight 235 lb BMI 34.2 BP 164/78 H Blood Pressure Location Lt brachial Position Sitting Pulse 71 Intake Visit Reasons: follow up Intake Note: Patient follow up for IBS Patient cc: N/V, abdominal discomfort with RUQ pain, acid reflex and between diarrhea and constipation. Transformation Coach Required: No Accompanied by: Self / Same As Patient Allergies codeine Adverse Reaction (Intermediate, Verified 10/02/23 10:39) chills HPI follow up HPI Details LAST VISIT Right upper quadrant abdominal pain Right upper quadrant nontender. Status post cholecystectomy. Hyperactive bowel sounds, possible gas trapping pain in hepatic flexure. IBS (irritable bowel syndrome) Patient reports occasional postprandial abdominal bloating occasionally patient will have loose stools specially after having coffee in the morning. Patient does admit to have milk in her coffee. Discussed with patient trying lactose free products. Low FODMAP diet discussed with patient. List of food recommended as well as food to avoid given to patient. Will check lipase, GGT, pancreatic insufficiency, transglutaminase and vitamin B12 and folate. Postprandial abdominal bloating Occasional postprandial abdominal bloating again as mentioned above discussed with patient avoiding dietary triggers. Patient will be given Citrucel and Senokot to help her evacuate her bowels better. I will see patient in 6 months, sooner on as needed basis. Patient is agreeable to this plan and verbalizes understanding of instructions. She was given the opportunity to ask questions and all questions answered. ? Thank you for allowing me to participate in her care Plan Orders Orders H Pylori Breath Test Today Lipase Today R10.9 Gamma Glutamyl Transpeptidase Today R74.8 Vitamin D 25-OH (D2 and D3) Today E55.9 Pancreatic Elastase-1 Today R10.9 Transglutaminase Ab IgG Today R10.9 Transglutaminase IgA Today R10.9 Vitamin B12 and Folate Today R19.7 Medications New methylcellulose (laxative) (Citrucel) take it with full glass of water 500 mg PO DAILY 30 tabs 2RF K59.00 sennosides (Natural Senna Laxative) 17.2 mg (2 x 8.6 mg) PO BEDTIME 60 tabs 3RF constipation K59.00 TODAY'S VISIT: Patient is here today for follow-up. Patient reports that she has been feeling little better, however she continues to have a postprandial abdominal bloating, loose stools right upper quadrant pain. Patient reports that she does not feel like she empties completely. Patient had been treated for H pylori in the past with successful eradication. Patient continues to have occasional epigastric discomfort postprandially. Currently she is using omeprazole daily. Patient denies any nausea or vomiting the patient is going through stressful time in her life right now. Going through divorce. Patient denies melena, hematochezia, unintentional weight loss or ribbon like stools. Patient reports to have colonoscopy over 5 years ago at [facility] and she that she is due for ano ther one. Patient denies dyspepsia [facility] Medical History GERD (gastroesophageal reflux disease) Surgical History History of cholecystectomy History of tubal ligation Family History Father Diabetes Hypertension Stroke Heart murmur Mother Diabetes Hypertension Bursitis Tendonitis Arthritis Paternal Grandmother Colon cancer Social History Housing: House Alcohol intake: current Alcohol intake frequency: holidays/special occasions only Alcohol type: other Patient Tobacco Use Status: Never used Tobacco e-Cigarette/Vaping Use: Never Used Second Hand Smoke Exposure: No service: No Current occupational status: employed Current occupational exposures/hazards: No Cognitive needs: No Hearing needs: No Vision needs: Yes Review of Systems Const Denies weight gain and Denies weight loss ENT Reports no additional complaints, Denies dysphagia and Denies odynophagia Card Reports no additional complaints Resp Reports no additional complaints GI Denies abdominal pain, Denies belching, Denies melena, Denies bloating, Denies change in bowel habits, Reports constipation, Denies dysphagia, Denies excessive flatus, Denies dyspepsia, Reports heartburn, Reports diarrhea, Denies loose stools, Reports nausea, Denies odynophagia and Denies vomiting Reports no additional complaints Musc Reports no additional complaints Neuro Reports no additional complaints Psych Reports no additional complaints Endo Reports no additional complaints Physical Exam Vital Signs: Last Vital Signs Pulse 71 10/02/23 10:49 BP 164/78 H 10/02/23 10:49 BMI result Body Mass Index 34.2 Const General: healthy appearing, no acute distress and well developed Nutritional Appearance: well nourished Orientation/consciousness: patient oriented x3 HEENT Head: Yes normal to inspection, Yes normocephalic and Yes atraumatic Face and sinus: Yes normal facial exam Mouth: Normal oral and palatal mucosa present Throat: Yes posterior oropharynx normal, Yes tonsils normal and Yes uvula midlin e Eyes General: appearance normal, both eyes and all related structures Neck Neck: Yes normal visual inspection, Yes full ROM and Yes trachea midline Thyroid: Thyroid normal Resp Effort & Inspection: normal respiratory effort, able to speak in complete sentences, no tracheal deviation and symmetric chest movement Auscultation: clear to auscultation bilaterally Cardio Rate: regular rate Heart sounds: S1 normal heart sound present and S2 normal heart sound present GI Inspection: Yes normal to inspection, No distended and Yes obesity Palpation (GI): Soft to palpation, not firm, nontender and No hepatosplenomegaly present Auscultation: normal bowel sounds General: Yes no CVA tenderness Back/Spine/Pelvis Back: no CVA tenderness Skin General skin exam: elasticity normal, turgor normal and dry skin Neuro General: patient oriented x3 Psych Appearance: grossly normal Mental Status: mental status grossly normal Assessment & Plan Assessment & Plan (1) Right upper quadrant abdominal pain: Code(s): R10.11 - Right upper quadrant pain (2) Chronic GERD: Code(s): K21.9 - Gastro-esophageal reflux disease without esophagitis (3) History of Helicobacter pylori infection: Code(s): Z86.19 - Personal history of other infectious and parasitic diseases (4) IBS (irritable bowel syndrome): Code(s): K58.9 - Irritable bowel syndrome without diarrhea Qualifiers: Irritable bowel syndrome type: with both diarrhea and constipation Qualified Code(s): K58.2 - Mixed irritable bowel syndrome Plan Continue current treatment with omeprazole. Patient was encouraged to take Citrucel to help her bulk her stools and take Senokot to help her eliminate her bowels better. We did discuss going for colonoscopy as well as upper endoscopy. Was expect before during and after the procedure discussed with patient. Patient reports that she has couple of loose teeth and would like to see dentist before going for procedure. Patient will need to have a mouth guard in her mouth and she is afraid she is going to lose her feet. Patient has appointment with dentist pain October. Patient denies any history of sleep apnea. Not on any anticoagulation medication. No issues with anesthesia in the past. Denies any history of infectious diseases in the past or present. Good bowel prep discussed with patient. Patient will follow-up in the office after the procedure, sooner on as needed basis. Patient is agreeable to this plan and verbalizes understanding of instructions. She was given the opportunity to ask questions and all questions answered. Thank you for allowing me to participate in her care Medications: New bisacodyl (Dulcolax (bisacodyl)) take 4 tabs at noon the day before your colonoscopy 20 mg (4 x 5 mg) PO ONCE 1 day 4 tabs 0RF Z12.11 - Encounter for screening for malignant neoplasm of colon polyethylene glycol 3350 (Miralax) As directed by gastroenterology department at [facility] 238 grams PO ONCE 238 grams 0RF Z12.11 - Encounter for screening for malignant neoplasm of colon Coding Level of Care Code Est Pt Level 4 (04913) Diagnoses Right upper quadrant abdominal pain R10.11 Chronic GERD K21.9 History of Helicobacter pylori infection Z86.19 Irritable bowel syndrome with both constipation and diarrhea K58.2 Irritable bowel syndrome type: with both diarrhea and constipation Time Spent (min) 35 Comment 20 minutes spent with patient and additional 15 minutes spent reviewing her records
[2023-10-02 10:49] VITALS: BP 164/78; PULSE 71; BMI 34.2
== END 2023-10-02 12:08 | disposition home or self-care (01) ==
PROVIDERS: PCP Internal Medicine; Visit Provider Nurse Practitioner Family
DX: R10.11 Right upper quadrant pain (principal); K21.9 Gastro-esophageal reflux disease without esophagitis; Z86.19 Personal history of other infectious and parasitic diseases; K58.2 Mixed irritable bowel syndrome
CPT/HCPCS: 99214

== ENCOUNTER → 2023-10-02 10:35 | Outpatient (BNVA) | payer OTHER, SELFPAY | PROVIDERS: PCP Internal Medicine; Visit Provider Nurse Practitioner Family ==

== ENCOUNTER 2023-10-02 11:30 | Outpatient (RCR) | payer OTHER, SELFPAY ==
[2023-08-15 14:26] LABS: H Pylori Breath Test Positive (Negative)
--- NOTE | 2023-08-17 11:38 | MHC.OT.EP ---
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 New phone ~ 1 year ago. Alleviating Factors: Avoiding use, massage and stretching Assessment: Pt is a 63 yo female with a history of Fibromyalgia and sedentary work and leisure reports worsening bilateral hand cramping and left arm pain over the last several months primarily with static gripping and typing Today she presents with proximal weakness and S+S of lateral epicondylitis. 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 Thank you once again for your referral.
--- NOTE | 2023-09-09 09:53 | MHC.OT.DC ---
[address] [phone] F: [phone] Occupational Therapy Discharge Note Patient Name: Sara Pinedo Provider: Katarina Amado Diagnosis: Bilateral hands cramping Left arm pain Date of Surgery: Date of Evaluation: 08/14/23 Date of Discharge: 09/09/23 Treatments to Date: 2 Cancellations to Date: 2 No Shows to Date: Discharge Status: Patient Elected to Stop Discharge Summary: Pt cancelled all scheduled appointments. There was a lapse in treatment due to pt illness. Pt will be out of work where she generally experiences most hand spasms. Pt with tight upper quadrant, tight lumbrical muscles Tolerated low reps , submax for pain tolerance Electronically Signed By: Melissa Palacios OT CHT CLT Reviewed/agree with student documentation: Therapist: Please Sign and return to therapist, thank you for your referral.
--- NOTE | 2023-10-23 10:24 | MHC.OT.DC ---
[address] [phone] F: [phone] Occupational Therapy Discharge Note Patient Name: Sara Pinedo Provider: Katarina Amado Diagnosis: Bilateral hands cramping Left arm pain Date of Surgery: Date of Evaluation: 08/14/23 Date of Discharge: Treatments to Date: 7 Cancellations to Date: 5 No Shows to Date: Discharge Status: Recommend MD Follow-up Discharge Summary: Pt had two , two week lapses in treatment due to patient illness. Pt had con't mild radial wrist edema ,submax Pichardo stretch due to L dorsal wrist pain and lateral elbow pain. Pt had been painfree with isometric strengthening ex, however on her last visit was with high pain. No hand cramping has been observed during evaluation or during OT treatments. Pt has cancelled remaining scheduled appointments due to illness Electronically Signed By: Melissa Palacios OT CHT CLT Reviewed/agree with student documentation: N/A Therapist: Please Sign and return to therapist, thank you for your referral.
--- NOTE | 2023-10-23 12:12 | MHC.OT.DC ---
[address] [phone] F: [phone] Occupational Therapy Discharge Note Patient Name: Sara Pinedo Provider: Katarina Amado Diagnosis: Bilateral hands cramping Left arm pain Date of Surgery: Date of Evaluation: 08/14/23 Date of Discharge: Treatments to Date: 7 Cancellations to Date: 5 No Shows to Date: Discharge Status: Recommend MD Follow-up Discharge Summary: Pt had two , two week lapses in treatment due to patient illness and a 4 week lapse since her last appointment due to illness. She has con't mild radial wrist edema ,submax with Pichardo stretch due to L dorsal wrist pain and lateral elbow pain. No hand cramping/spasm has been observed during evaluation or during OT treatments. Pt reports increased pain with Theraband exercise. Reports increased left wrist pain with steering wheel, house cleaning with left hand repetitions ie cleaning, Reports hand spasm with just sitting or light activity, . Spasm 2-3 times a day. Not self correcting. Pain varies, generally 6/10 Director Security Risk Management R 40 lb L 25 lb Lat pinch R 8 lb L 6 lb Tip pinch R 6 lb L 6 lb AROM WNL Electronically Signed By: Melissa Palacios OT CHT CLT Reviewed/agree with student documentation: N/A Therapist: Please Sign and return to therapist, thank you for your referral.
== END 2023-10-23 10:25 | disposition home or self-care (01) ==
LOC: HO.OT 11:30
PROVIDERS: Nurse Practitioner Family; PCP Internal Medicine; Visit Provider Orthopaedic Surgery
DX: R25.2 Cramp and spasm (principal); M79.602 Pain in left arm
CPT/HCPCS: 29125; 83013; 97033; 97110; 97140; 97166; 97760

== ENCOUNTER 2024-01-14 12:31 | Outpatient (AMB) | payer OTHER, SELFPAY ==
--- NOTE | 2024-01-14 12:34 | MHC.PC.OV ---
Vital Signs 01/14/24 12:35 01/14/24 13:35 Height 5 ft 9.5 in Weight 242 lb BMI 35.2 BP 152/100 H 150/90 H Blood Pressure Location Lt brachial Lt brachial Position Sitting Sitting Intake Visit Reasons: preop clearance left cataract Intake Note: Pare-op clearance cataract left eye, hand concerns, hair loss Actuarial Technician Required: No Accompanied by: Self / Same As Patient Allergies codeine Adverse Reaction (Intermediate, Verified 01/14/24 12:54) chills sertraline Adverse Reaction (Intermediate, Verified 01/14/24 12:56) severe depression, suicidal thoughts Medication List - Last Reconciled 01/14/24 by Claire Rodriguez MD bisacodyl (Dulcolax (bisacodyl)) 20 mg (4 x 5 mg) PO ONCE 1 day bismuth subsalicylate 2 tabs PO QID 14 days cholestyramine (with sugar) 4 gram 4 grams PO DAILY PRN 60 days cyclosporine 0.05% (Restasis MultiDose) 1 drp ophthalmic (eye) Q12H 30 days gabapentin 300 mg PO TID methylcellulose (laxative) (Citrucel) 500 mg PO DAILY omeprazole 20 mg PO DAILY polyethylene glycol 3350 (Miralax) 238 grams PO ONCE sennosides (Natural Senna Laxative) 17.2 mg (2 x 8.6 mg) PO BEDTIME Tobacco use date assessed: 01/14/24 Dental Screening Dental Screen Date: 01/14/24 Did you have a dental visit in the last 12 months?: Yes Did you have a dental problem in the last 6 months where you did not have access to dental care?: No Was dental information given to patient?: Patient has dentist HPI HPI Comments History of Present Illness Details This is a 63-year-old female with hypertension, chronic GERD, mild major depression and hair loss that comes for preop evaluation for cataract extraction and intraocular lens implant in left eye scheduled for 01/25/2024 and right eye scheduled for February 2024. Blood pressure elevated and I will start her on losartan. Depression from severe has markedly improved 2 mi and she follows with counseling. She complains of some hair loss and will be referred to Dermatology. She has 5-7 Mets of ADLs and is going to low risk surgery. EKG and labs are pending for medical clearance. [facility] Medical History (Updated 01/14/24 @ 13:05 by Claire Rodriguez MD) Severe depression GERD (gastroesophageal reflux disease) Surgical History History of cholecystectomy History of tubal ligation Family History Father Diabetes Hypertension Stroke Heart murmur Mother Diabetes Hypertension Bursitis Tendonitis Arthritis Paternal Grandmother Colon cancer Social History Housing: House Alcohol intake: current Alcohol intake frequency: holidays/special occasions only Alcohol type: other Patient Tobacco Use Status: Never used Tobacco e-Cigarette/Vaping Use: Never Used Second Hand Smoke Exposure: No service: No Current occupational status: employed Current occupational exposures/hazards: No Cognitive needs: No Hearing needs: No Vision needs: Yes Questionnaire PHQ-9 Over the last 2 weeks, how often have you been bothered by any of the following problems? 1. Little interest or pleasure in doing things: not at all 2. Feeling down, depressed, or hopeless: several days 3. Trouble falling or staying asleep, or sleeping too much: several days 4. Feeling tired or having little energy: several days 5. Poor appetite or overeating: not at all 6. Feeling bad about yourself - or that you are a failure or have let yourself or your family down: not at all 7. Trouble concentrating on things, such as reading the newspaper or watching television: not at all 8. Moving or speaking so slowly that other people could have noticed. Or the opposite - being so fidgety or restless that you have been moving around a lot more than usual: not at all 9. Thoughts that you would be better off or of hurting yourself in some way: not at all Total score: 3 Depression Screening Interpretation: Positive Depression Screening Follow-up: Existing condition and Community Mental Health Worker F/U Depression Screening Done: Yes 06193 - PHQ-9 Billing: Yes Source: Developed by Drs. Ronak Hull, Calista Bolden, Karlo Palma and colleagues, with an educational robby from [employer]. Thrive Questionnaire Date Thrive assessed: 01/14/24 I am a: Patient What is your living situation today?: I have a steady place to live Within the past 12 months, did the food you bought not last and you didn't have the money to get more?: Never true Within the past 12 months, did you worry whether your food would run out before you got money to buy more?: Never true Do you have trouble paying for medicines?: No Do you have trouble getting transportation to medical appointments?: No Do you have trouble paying your heating and electricity bill?: No Do you have trouble taking care of your child, family member or friend?: No Do you have trouble with day-to-day activities such as bathing, preparing meals, shopping, managing finances, etc.?: No Are you currently unemployed and looking for a job?: No Are you interested in more education?: No Please select the resources that you would like help with: None Currently or been in a relationship where the following occur: no concerns reported THRIVE Score: 0 AUDIT C Alcohol Use Questionnaire (AUDIT-C) 1. How often do you have a drink containing alcohol?: Monthly or less 2. How many drinks containing alcohol do you have on a typical day when you are drinking?: 1 or 2 3. How often do you have six or more drinks on one occasion?: Never Total Score: 1 Score Reviewed/Action Taken: No JYOTSNA-7 AMB Questionnaire JYOTSNA-7 Date JYOTSNA - 7 assessed: 01/14/24 Feeling nervous, anxious, or on edge: 0 = Not at all Not being able to stop or control worryin = Not at all Worrying too much about different things: 0 = Not at all Trouble relaxin = Not at all Being so restless that it is hard to sit still: 0 = Not at all Becoming easily annoyed or irritable: 0 = Not at all Feeling afraid as if something awful might happen: 0 = Not at all Total JYOTSNA-7 score (0-4 normal; 5-9 mild; 10-14 moderate; 15-21 severe): 0 Source: Developed by Drs. Ronak Hull, Calista Bolden, Karlo Palma and colleagues, with an educational robby from [employer]. JYOTSNA-7 Assessment Billing JYOTSNA-7 Assessment Tool: JYOTSNA-7 Assessment 08267 Review of Systems Const All systems reviewed & are unremarkable except as noted in HPI and below Eyes Reports no additional complaints, Denies change in vision and Denies other visual disturbances Card Denies chest pain at rest, Denies chest pain with activity, Denies edema, Denies irregular heart rhythm, Denies claudication, Denies dyspnea, Denies dyspnea on exertion, Denies orthopnea, Denies paroxysmal nocturnal dyspnea and Denies slow heart rate Resp Denies cough, Denies dyspnea and Denies dyspnea on exertion GI Denies abdominal pain, Denies change in bowel habits, Denies excessive flatus, Denies nausea and Denies vomiting Denies urinary incontinence, Denies urinary hesitancy and Denies urinary urgency Musc Denies abnormal gait, Denies atrophy, Denies deformity and Denies limited range of motion Skin/Breast Denies bleeding lesions, Denies changing lesions and Denies rash Neuro Denies abnormal gait and Denies lack of coordination Psych Reports depression Physical exam (Primary Care) Vital Signs: Last Vital Signs BP 152/100 H 01/14/24 12:35 BMI result Body Mass Index 35.2 Tobacco/Smoking Status: Tobacco use Status Tobacco use date assessed 01/14/24 01/14/24 12:39 Patient Tobacco Use Status Never used Tobacco 01/14/24 12:39 e-Cigarette/Vaping Use Never Used 01/14/24 12:39 PHQ-9: PHQ-9 Score PHQ-9: Total score 3 01/14/24 12:57 Depression Screening Interpretation: Positive Depression Screening Follow-up: Existing condition and Community Mental Health Worker F/U Thrive Assessment: Date of Thrive Assessment Date Thrive assessed 01/14/24 01/14/24 12:47 Currently or been in a relationship where the following occur: no concerns reported Eyes General: appearance normal, both eyes and all related structures Eyelids: Yes eyelids normal Conjunctivae: conjunctivae normal Neck Neck: Yes normal visual inspection and Yes supple Resp Effort & Inspection: normal respiratory effort Auscultation: clear to auscultation bilaterally Cardio Jugular venous distension: no JVD Rate: regular rate Rhythm: regular rhythm Heart sounds: S1 normal heart sound present and S2 normal heart sound present Extrem General: Yes full ROM Assessment and Plan Assessment & Plan (1) Pre-op evaluation: Code(s): Z01.818 - Encounter for other preprocedural examination Plan: EKG and labs pending for medical clearance. (2) Mild major depression: Code(s): F32.0 - Major depressive disorder, single episode, mild Plan: Continue counseling. (3) Essential hypertension: Code(s): I10 - Essential (primary) hypertension Plan: Start losartan. Blood pressure goal is equal or less than 130/80. (4) Chronic GERD: Code(s): K21.9 - Gastro-esophageal reflux disease without esophagitis Plan: Continue PPIs. (5) Hair loss: Code(s): L65.9 - Nonscarring hair loss, unspecified Plan: Referred to dermatology. Orders: Orders Complete Blood Count Auto Diff Today D64.9 - Anemia, unspecified IRON PROFILE Today D64.9 - Anemia, unspecified Comprehensive [place]. Panel Fast Today G43.909 - Migraine, unspecified, not intractable, without status migrainosus ECG 12 lead EKG Today Z01.818 - Encounter for other preprocedural examination Referrals Dermatology Referral L65.9 - Nonscarring hair loss, unspecified Medications: New losartan 25 mg PO DAILY 90 days 90 tabs 0RF I10 - Essential (primary) hypertension Coding Level of Care Code Est Pt Level 4 (73212) Diagnoses Pre-op evaluation Z01.818 Mild major depression F32.0 Essential hypertension I10 Chronic GERD K21.9 Hair loss L65.9 Additional Codes JYOTSNA-7 Assessment Billing - JYOTSNA-7 Assessment Tool: JYOTSNA-7 Assessment 12441 ([id number]) Time Spent (min) 25
[2024-01-14 12:35] VITALS: BP 152/100; BMI 35.2
[2024-01-14 13:35] VITALS: BP 150/90
== END 2024-01-14 13:04 | disposition home or self-care (01) ==
PROVIDERS: PCP Internal Medicine; Visit Provider Internal Medicine
DX: Z01.818 Encounter for other preprocedural examination (principal); H26.9 Unspecified cataract; F32.0 Major depressive disorder, single episode, mild; I10 Essential (primary) hypertension; K21.9 Gastro-esophageal reflux disease without esophagitis
CPT/HCPCS: 99214

== ENCOUNTER → 2024-01-14 13:10 | Outpatient (REF) | payer OTHER, SELFPAY ==
--- NOTE | 2024-01-14 13:28 | ECG_ITS ---
Test Reason : z01.818 Blood Pressure : / mmHG Vent. Rate : 088 BPM Atrial Rate : 088 BPM P-R Int : 178 ms QRS Dur : 092 ms QT Int : 368 ms P-R-T Axes : 046 017 034 degrees QTc Int : 445 ms Normal sinus rhythm Septal infarct , age undetermined Abnormal ECG No significant changes when compared with the previous EKG of 10 dec 2004 Referred By: Claire Rodriguez Electronically Signed By:RAUL TILLMAN
== END ==
LOC: HO.CARD 13:10
PROVIDERS: PCP Internal Medicine; Visit Provider Internal Medicine
DX: Z01.818 Encounter for other preprocedural examination (principal)
CPT/HCPCS: 93005

== ENCOUNTER → 2024-01-14 13:28 | Outpatient (BNV) | payer OTHER, SELFPAY | PROVIDERS: PCP Internal Medicine; Visit Provider Internal Medicine | DX: Z01.818 Encounter for other preprocedural examination (principal) | CPT/HCPCS: 93010 ==

== ENCOUNTER 2024-01-15 11:02 | Outpatient (REF) | payer OTHER, SELFPAY ==
[2024-01-15 11:11] LABS: MANUAL DIFF FLAG NO
[2024-01-15 11:55] LABS: Basophils Percent Auto 0.4 % (0-2); Eosinophils Absolute Auto 0.4 X10*3/uL (0.0-0.4); Eosinophils Percent Auto 6.3 % (0-4); Hematocrit 38.3 % (37.0-47.0); Hemoglobin 11.8 g/dl (12.0-16.0); Imm Gran Abs Auto 0.02 X10*3/uL (0.00-0.03); Imm Gran Pct Auto 0.3 % (0.0-0.4); Lymphocytes Absolute Auto 2.1 X10*3/uL (1.2-4.9); Lymphocytes Percent Auto 29.9 % (20-40); Mean Corpuscular HGB Conc 30.8 g/dl (31.0-35.0); Mean Corpuscular Hemoglobin 21.6 pg (27.0-33.0); Mean Corpuscular Volume 70.1 fL (80.0-98.0); Mean Platelet Volume 9.9 fL (9.4-12.3); Monocytes Absolute Auto 0.6 X10*3/uL (0.1-1.2); Monocytes Percent Auto 8.6 % (2-11); Neutrophils Absolute Auto 3.7 x10*3/uL (2.0-8.3); Neutrophils Percent Auto 54.5 % (45-73); Platelet Count 300 X10*3/uL (160-400); Red Blood Count 5.46 X10*6/uL (4.20-5.50); Red Cell Distribution Width 17.6 % (11.0-16.0); White Blood Count 6.9 X10*3/uL (4.8-10.8)
[2024-01-15 12:37] LABS: Alanine Aminotransferase 21 U/L (0-31); Albumin Level 4.3 g/dL (3.5-5.0); Alkaline Phosphatase 65 U/L (39-117); Anion Gap 10 (12-20); Aspartate Amino Transferase 20 U/L (5-31); Bilirubin Total 0.4 mg/dL (0.0-1.0); Blood Urea Nitrogen 16 mg/dL (9-16); Calcium 9.7 mg/dL (8.4-10.2); Carbon Dioxide 29 mmol/L (22-29); Chloride 107 mmol/L (96-108); Estimated Glomerular Filt Rate 56; Glucose Fasting 95 mg/dL (60-99); Iron 73 mcg/dL (30-160); Percent Iron Saturation 26 % (15-50); Potassium 4.1 mmol/L (3.3-5.1); Sodium 142 mmol/L (135-145); Total Iron Binding Capacity 282 mcg/dL (228-428); Total Protein 7.7 g/dL (6.5-8.0); Unsaturated Iron Binding 209 ug/dL
== END 2024-01-15 11:03 | disposition home or self-care (01) ==
LOC: HO.LAB 11:02
PROVIDERS: PCP Internal Medicine; Visit Provider Internal Medicine
DX: G43.909 Migraine, unspecified, not intractable, without status migrainosus (principal); D64.9 Anemia, unspecified
CPT/HCPCS: 36415; 80053; 83540; 85025

== ENCOUNTER 2024-02-18 13:05 | Outpatient (AMB) | payer OTHER, SELFPAY ==
[2024-02-18 13:13] VITALS: BP 136/70; PULSE 88; TEMP 36.8; O2SAT 99; BMI 34.8
--- NOTE | 2024-02-18 13:13 | MHC.OFFWIV ---
Intake Vital Signs 02/18/24 13:13 Height 5 ft 9.5 in Weight 239 lb BMI 34.8 BP 136/70 Blood Pressure Location Lt brachial Position Sitting Pulse 88 Pulse Source Pulse Oximeter Temp 98.2 F Temp Source Temporal Artery Scan Pulse Oximetry (%) 99 Oxygen Delivery Method Room Air Intake Visit Reasons: EP Allergic reaction/Recently had eye surgery Intake Note: pt is here today for allergic reaction started 1 week ago Patient Tobacco Use Status: Never used Tobacco Allergies codeine Adverse Reaction (Intermediate, Verified 02/18/24 13:19) chills sertraline Adverse Reaction (Intermediate, Verified 02/18/24 13:19) severe depression, suicidal thoughts Do you need a note to return to daycare/school/sports/work: Yes HPI EP Allergic reaction/Recently had eye surgery HPI Details This is a 63 year old female patient who presents today with a rash on her face, neck, and a small area on her left buttock. She is unsure what this rash is from. This started about 1 week ago. She reports having cataract surgery several weeks ago and is not sure if this is related. Rash started on her neck and she initially tried what sounds to be an antifungal cream, however this exacerbated rash and made it bright red and raised, per patient. She denies any other use of new products or medications. She reports rash is slightly itchy, but not bad. She feels her cheeks are very swollen due to the rash. She also has a small area on her left buttock with similar symptoms. Denies any itchiness of throat or difficulty breathing. [facility] Medical History Severe depression GERD (gastroesophageal reflux disease) Surgical History History of cholecystectomy History of tubal ligation Family History Father Diabetes Hypertension Stroke Heart murmur Mother Diabetes Hypertension Bursitis Tendonitis Arthritis Paternal Grandmother Colon cancer Social History Housing: House Alcohol intake: current Alcohol intake frequency: holidays/special occasions only Alcohol type: other Patient Tobacco Use Status: Never used Tobacco e-Cigarette/Vaping Use: Never Used Second Hand Smoke Exposure: No service: No Current occupational status: employed Current occupational exposures/hazards: No Cognitive needs: No Hearing needs: No Vision needs: Yes Review of Systems Const All systems reviewed & are unremarkable except as noted in HPI and below Physical Exam Vital Signs: Last Vital Signs Temp 98.2 F 02/18/24 13:13 Pulse 88 02/18/24 13:13 BP 136/70 02/18/24 13:13 Pulse Ox 99 02/18/24 13:13 Oxygen Delivery Method Room Air 02/18/24 13:13 BMI result Body Mass Index 34.8 Const General: cooperative and no acute distress HEENT Other: hair loss Head: Yes normocephalic and Yes atraumatic Ears: hearing grossly normal bilaterally Resp Effort & Inspection: normal respiratory effort Auscultation: clear to auscultation bilaterally Cardio Rate: regular rate Rhythm: regular rhythm Skin Other: erythematous, raised rash on face - primarily cheeks, also noted on neck and also a small area on left buttock with similar rash, however with small pinpoint white pustules in this area. All areas intact. No excessive warmth. Extrem General: Yes capillary refill normal and Yes no clubbing, cyanosis or edema Psych Appearance: grossly normal Mental Status: mental status grossly normal Speech and movement: Normal speech and movement present Assessment & Plan Assessment & Plan (1) Contact dermatitis: Code(s): L25.9 - Unspecified contact dermatitis, unspecified cause Qualifiers: Contact dermatitis type: unspecified Plan: This appears to be a contact derm. Given then extent on her face and neck, I am going to start her on a prednisone taper. We reviewed indications, use, possible side effects of this medication. Advised to keep skin clean and dry. If she does not improve with treatment, or if she develops any worsening or rash or new symptoms, she should return to the clinic for further evaluation. She verbalizes understanding and agrees to plan. Medications: New prednisone Take 4 tabs for two days, then take 3 tabs for two days, then take 2 tabs for two days, then take 1 tab for 2 days. 10 mg PO DAILY 20 tabs 0RF T78.40XA - Allergy, unspecified, initial encounter Coding Level of Care Code Est Pt Level 4 (12259) Diagnoses Contact dermatitis L25.9 Contact dermatitis type: unspecified
== END 2024-02-18 14:04 | disposition home or self-care (01) ==
PROVIDERS: PCP Internal Medicine; Visit Provider Nurse Practitioner Family
DX: L25.9 Unspecified contact dermatitis, unspecified cause (principal)
CPT/HCPCS: 99214

== ENCOUNTER 2024-03-17 13:31 | Outpatient (AMB) | payer OTHER, SELFPAY ==
[2024-03-17 13:40] VITALS: BP 150/90; BMI 34.5
--- NOTE | 2024-03-17 13:40 | MHC.PC.OV ---
Vital Signs 03/17/24 13:40 Height 5 ft 9.5 in Weight 237 lb BMI 34.5 BP 150/90 H Blood Pressure Location Lt brachial Position Sitting Intake Visit Reasons: depression Intake Note: Patient here for a follow up depression, requesting testing to rule out lupus Bung Remover Required: No Accompanied by: Self / Same As Patient Allergies codeine Adverse Reaction (Intermediate, Verified 03/17/24 14:01) chills sertraline Adverse Reaction (Intermediate, Verified 03/17/24 14:01) severe depression, suicidal thoughts Medication List - Last Reconciled 03/17/24 by Claire Rodriguez MD bisacodyl (Dulcolax (bisacodyl)) 20 mg (4 x 5 mg) PO ONCE 1 day cholestyramine (with sugar) 4 gram 4 grams PO DAILY PRN 60 days difluprednate 0.05% 1 drp ophthalmic (eye) QID gabapentin 300 mg PO TID omeprazole 20 mg PO DAILY polyethylene glycol 3350 (Miralax) 238 grams PO ONCE sennosides (Natural Senna Laxative) 17.2 mg (2 x 8.6 mg) PO BEDTIME Tobacco use date assessed: 01/14/24 Dental Screening Dental Screen Date: 01/14/24 HPI HPI Comments History of Present Illness Details This is a 63-year-old female with mild major depression in remission, bile salt induced diarrhea, chronic GERD and fibromyalgia that comes today complaining of a neck pain associated with arm numbness and tingling. Will be referred to [facility] for this matter. Depression has markedly improved after she got officially . Diarrhea has been stable with cholestyramine as needed. GERD stable with PPIs. Has fibromyalgia that has been well controlled with gabapentin. No chest pain or shortness of breath. No fever or cough. Complains of left hand pain and weakness. [facility] Medical History (Updated 03/19/24 @ 09:47 by Claire Rodriguez MD) Severe depression GERD (gastroesophageal reflux disease) Surgical History History of cholecystectomy History of tubal ligation Family History Father Diabetes Hypertension Stroke Heart murmur Mother Diabetes Hypertension Bursitis Tendonitis Arthritis Paternal Grandmother Colon cancer Social History Housing: House Alcohol intake: current Alcohol intake frequency: holidays/special occasions only Alcohol type: other Patient Tobacco Use Status: Never used Tobacco e-Cigarette/Vaping Use: Never Used Second Hand Smoke Exposure: No service: No Current occupational status: employed Current occupational exposures/hazards: No Cognitive needs: No Hearing needs: No Vision needs: Yes Questionnaire Thrive Questionnaire Date Thrive assessed: 01/14/24 JYOTSNA-7 AMB Questionnaire JYOTSNA-7 Date JYOTSNA - 7 assessed: 01/14/24 Source: Developed by Drs. Ronak Hull, Calista Bolden, Karlo Palma and colleagues, with an educational robby from [employer]. Review of Systems Const All systems reviewed & are unremarkable except as noted in HPI and below Eyes Reports no additional complaints, Denies change in vision and Denies other visual disturbances Card Denies chest pain at rest, Denies chest pain with activity, Denies edema, Denies irregular heart rhythm, Denies claudication, Denies dyspnea, Denies dyspnea on exertion, Denies orthopnea, Denies paroxysmal nocturnal dyspnea and Denies slow heart rate Resp Denies cough, Denies dyspnea and Denies dyspnea on exertion Physical exam (Primary Care) Vital Signs: Last Vital Signs BP 150/90 H 03/17/24 13:40 BMI result Body Mass Index 34.5 Tobacco/Smoking Status: Tobacco use Status Tobacco use date assessed 01/14/24 03/17/24 13:47 Patient Tobacco Use Status Never used Tobacco 03/17/24 13:47 e-Cigarette/Vaping Use Never Used 03/17/24 13:47 Thrive Assessment: Date of Thrive Assessment Date Thrive assessed 01/14/24 03/17/24 13:47 Neck Neck: Yes normal visual inspection and Yes supple Resp Effort & Inspection: normal respiratory effort Auscultation: clear to auscultation bilaterally Cardio Jugular venous distension: no JVD Rate: regular rate Rhythm: regular rhythm Heart sounds: S1 normal heart sound present and S2 normal heart sound present Extrem General: Yes full ROM Psych Appearance: grossly normal Assessment and Plan Assessment & Plan (1) Mild major depression: Code(s): F32.0 - Major depressive disorder, single episode, mild Plan: In remission. (2) Cervical radiculopathy: Code(s): M54.12 - Radiculopathy, cervical region Plan: Referred to Ortho. (3) Chronic GERD: Code(s): K21.9 - Gastro-esophageal reflux disease without esophagitis Plan: Continue PPIs. (4) Fibromyalgia: Code(s): M79.7 - Fibromyalgia Plan: Continue gabapentin. 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 Orders: Orders CLAIRE Reflex Titer and Pattern 03/17/24 M25.50 - Pain in unspecified joint Referrals Orthopedics Referral M54.12 - Radiculopathy, cervical region Coding Level of Care Code Est Pt Level 4 (90976) Diagnoses Mild major depression F32.0 Cervical radiculopathy M54.12 Chronic GERD K21.9 Fibromyalgia M79.7 Bile salt-induced diarrhea K90.89 Time Spent (min) 25
== END 2024-03-17 14:16 | disposition home or self-care (01) ==
PROVIDERS: PCP Internal Medicine; Visit Provider Internal Medicine
DX: F32.0 Major depressive disorder, single episode, mild (principal); M54.12 Radiculopathy, cervical region; K21.9 Gastro-esophageal reflux disease without esophagitis; M79.7 Fibromyalgia; K90.89 Other intestinal malabsorption
CPT/HCPCS: 99214

== ENCOUNTER 2024-04-06 12:10 | Outpatient (AMB) | payer OTHER, SELFPAY ==
[2024-04-06 12:16] VITALS: BP 132/84; PULSE 86; TEMP 36.9; O2SAT 98
--- NOTE | 2024-04-06 12:16 | MHC.OFFWIV ---
Intake Vital Signs 04/06/24 12:16 Height 5 ft 9.5 in BP 132/84 Blood Pressure Location Rt brachial Position Sitting Pulse 86 Pulse Source Pulse Oximeter Temp 98.4 F Temp Source Oral Pulse Oximetry (%) 98 Oxygen Delivery Method Room Air Intake Visit Reasons: EP Allergic reaction more then 7 weeks Intake Note: pt is here for allergic reaction on face and upper neck, rash with bumps Patient Tobacco Use Status: Never used Tobacco Allergies codeine Adverse Reaction (Intermediate, Verified 04/06/24 12:21) chills sertraline Adverse Reaction (Intermediate, Verified 04/06/24 12:21) severe depression, suicidal thoughts Do you need a note to return to daycare/school/sports/work: No HPI EP Allergic reaction more then 7 weeks HPI Details This is a 63 year old female patient who presents today with an ongoing rash. She was seen for this [facility] back on 02/17 when she presented with a 1 week history of a rash on her face and neck. She was unsure what this rash was from however she did mention having cataract surgery prior to rash developing. She initially tried what sounds to be an antifungal cream without relief. Given the extent on face/neck, she was started on a Prednisone taper. She reports this improved rash, and a couple of weeks after, she had cataract surgery done for her other eye and the rash recurred the next day. She reports her face feels swollen and itchy due to the rash. She denies any itchiness of throat or difficulty breathing. She denies any other use of new products or medications. She has tried mild face cleansers and face lotions without relief. [facility] Medical History Severe depression GERD (gastroesophageal reflux disease) Surgical History History of cholecystectomy History of tubal ligation Family History Father Diabetes Hypertension Stroke Heart murmur Mother Diabetes Hypertension Bursitis Tendonitis Arthritis Paternal Grandmother Colon cancer Social History Housing: House Alcohol intake: current Alcohol intake frequency: holidays/special occasions only Alcohol type: other Patient Tobacco Use Status: Never used Tobacco e-Cigarette/Vaping Use: Never Used Second Hand Smoke Exposure: No service: No Current occupational status: employed Current occupational exposures/hazards: No Cognitive needs: No Hearing needs: No Vision needs: Yes Review of Systems Const All systems reviewed & are unremarkable except as noted in HPI and below Physical Exam Vital Signs: Last Vital Signs Temp 98.4 F 04/06/24 12:16 Pulse 86 04/06/24 12:16 BP 132/84 04/06/24 12:16 Pulse Ox 98 04/06/24 12:16 Oxygen Delivery Method Room Air 04/06/24 12:16 Const General: cooperative and no acute distress HEENT Other: hair loss Head: Yes normocephalic and Yes atraumatic Ears: hearing grossly normal bilaterally Resp Effort & Inspection: normal respiratory effort Auscultation: clear to auscultation bilaterally Cardio Rate: regular rate Rhythm: regular rhythm Skin Other: Erythematous, raised rash on face - primarily cheeks, also noted on neck. Patient feels rash may be beginning on lower back, however no rash observed there at this time. All areas intact; no drainage. No excessive warmth. Extrem General: Yes capillary refill normal and Yes no clubbing, cyanosis or edema Psych Appearance: grossly normal Mental Status: mental status grossly normal Speech and movement: Normal speech and movement present Assessment & Plan Assessment & Plan (1) Contact dermatitis of face: Code(s): L25.9 - Unspecified contact dermatitis, unspecified cause Plan: Patient did well on PO prednisone previously for this rash, and then it recurred again following cataract surgery. I will start her on another taper and advised her to call dermatology office today to check on the status of her referral. Also provided her with the number of alternate derm office in [place] for possible sooner appointment. Advised she only use mild soaps and lotions on her face/neck in the meantime. We reviewed indications, use, possible s/e of prescribed medication. If rash worsens prior to dermatology visit, she can certainly return to the clinic or PCP for further evaluation. Medications: Refilled prednisone Take 4 tabs for two days, then take 3 tabs for two days, then take 2 tabs for two days, then take 1 tab for 2 days. 10 mg PO DAILY 20 tabs 0RF T78.40XA - Allergy, unspecified, initial encounter Coding Level of Care Code Est Pt Level 4 (76116) Diagnoses Contact dermatitis of face L25.9
== END 2024-04-06 13:17 | disposition home or self-care (01) ==
PROVIDERS: PCP Internal Medicine; Visit Provider Nurse Practitioner Family
DX: L25.9 Unspecified contact dermatitis, unspecified cause (principal)
CPT/HCPCS: 99214

== ENCOUNTER 2024-04-27 14:16 | Outpatient (AMB) | payer OTHER, SELFPAY ==
--- NOTE | 2024-04-27 14:19 | MHC.OFFVIS ---
Vital Signs 04/27/24 14:32 Height 5 ft 9.5 in Weight 242 lb 1.081 oz BMI 35.2 BP 150/92 H Blood Pressure Location Rt brachial Position Sitting Pulse 84 Pulse Source Pulse Oximeter Pulse Oximetry (%) 100 Oxygen Delivery Method Room Air Intake Visit Reasons: 6 month follow up Intake Note: Sara presents here in the office today for a scheduled 6 mos FUV. CC; Pt was rx'd miralax and dulcolax at her last visit. Pt is here today to discuss their sx and progress. Pt states that she had been doing well with her sx up until approximately the last 1.5 mos. Pt states that she had been dealing with increased bloating which was primarily localized to her stomach itself and noticed B/L UQ bloating and distention. Pt states that this has become more pronounced over the last x3 weeks. Pt states that they had previously had their colo s/p scheduled for 05/12/24. Pt does not recall canceling this appt and is still looking to have her colo s/p. Pt would like to address this with the provider. 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 Patient was encouraged to take Citrucel to help her bulk her stools and take Senokot to help her eliminate her bowels better. We did discuss going for colonoscopy as well as upper endoscopy. Was expect before during and after the procedure discussed with patient. Patient reports that she has couple of loose teeth and would like to see dentist before going for procedure. Patient will need to have a mouth guard in her mouth and she is afraid she is going to lose her feet. Patient has appointment with dentist pain October. Patient denies any history of sleep apnea. Not on any anticoagulation medication. No issues with anesthesia in the past. Denies any history of infectious diseases in the past or present. Good bowel prep discussed with patient. Patient will follow-up in the office after the procedure, sooner on as needed basis. Patient is agreeable to this plan and verbalizes understanding of instructions. She was given the opportunity to ask questions and all questions answered. ? Thank you for allowing me to participate in her care Medications New bisacodyl (Dulcolax (bisacodyl)) take 4 tabs at noon the day before your colonoscopy 20 mg (4 x 5 mg) PO ONCE 1 day 4 tabs 0RF Z12.11 polyethylene glycol 3350 (Miralax) As directed by gastroenterology department at [facility] 238 grams PO ONCE 238 grams 0RF Z12.11 TODAY'S VISIT: Patient is here today for follow-up. Patient reports that she has been doing better, however in the past few weeks she has been having postprandial abdominal bloating. Patient states that she would like to cancel procedure as her friend is moving to [place] in she does not have anyone that she can trust to take her to the hospital and back. Patient reports that she is having abdominal bloating that is not related to meals. Patient states that she is moving her bowels well. Denies any dyspepsia, dysphagia or odynophagia. Patient states that her symptoms of acid reflux are controlled with omeprazole. Patient reports that she is less stressed out right now. Before patient was under a lot of stress as she was going through divorce. Her ex- move back to [place]. [facility] Medical History Severe depression GERD (gastroesophageal reflux disease) Surgical History Hx of cataract removal with insertion of prosthetic lens History of cholecystectomy History of tubal ligation Family History Father Diabetes Hypertension Stroke Heart murmur Mother Diabetes Hypertension Bursitis Tendonitis Arthritis Paternal Grandmother Colon cancer Social History Housing: House Alcohol intake: current Alcohol intake frequency: holidays/special occasions only Alcohol type: other Patient Tobacco Use Status: Never used Tobacco e-Cigarette/Vaping Use: Never Used Second Hand Smoke Exposure: No service: No Current occupational status: employed Current occupational exposures/hazards: No Cognitive needs: No Hearing needs: No Vision needs: Yes Review of Systems Const Denies weight gain and Denies weight loss ENT Reports no additional complaints, Denies dysphagia and Denies odynophagia Card Reports no additional complaints Resp Reports no additional complaints GI Denies abdominal pain, Denies belching, Denies melena, Denies bloating, Denies change in bowel habits, Denies dysphagia, Denies excessive flatus, Denies dyspepsia, Denies heartburn, Denies diarrhea, Denies loose stools, Denies nausea, Denies odynophagia and Denies vomiting Musc Reports no additional complaints Neuro Reports no additional complaints Psych Reports no additional complaints Endo Reports no additional complaints Physical Exam Vital Signs: Last Vital Signs Pulse 84 04/27/24 14:32 BP 150/92 H 04/27/24 14:32 Pulse Ox 100 04/27/24 14:32 Oxygen Delivery Method Room Air 04/27/24 14:32 BMI result Body Mass Index 35.2 Const General: healthy appearing, no acute distress and well developed Nutritional Appearance: well nourished Orientation/consciousness: patient oriented x3 Resp Effort & Inspection: normal respiratory effort, able to speak in complete sentences, no tracheal deviation and symmetric chest movement Auscultation: clear to auscultation bilaterally Cardio Rate: regular rate GI Inspection: Yes normal to inspection, No distended and Yes obesity Palpation (GI): Soft to palpation, not firm, nontender and No hepatosplenomegaly present Auscultation: normal bowel sounds General: Yes no CVA tenderness Back/Spine/Pelvis Back: no CVA tenderness Skin General skin exam: elasticity normal, turgor normal and dry skin Neuro General: patient oriented x3 Psych Appearance: grossly normal Mental Status: mental status grossly normal Assessment & Plan Assessment & Plan (1) Right upper quadrant abdominal pain: Code(s): R10.11 - Right upper quadrant pain Category: Medical (2) Chronic GERD: Code(s): K21.9 - Gastro-esophageal reflux disease without esophagitis Category: Medical (3) History of Helicobacter pylori infection: Code(s): Z86.19 - Personal history of other infectious and parasitic diseases (4) IBS (irritable bowel syndrome): Code(s): K58.9 - Irritable bowel syndrome without diarrhea Qualifiers: Irritable bowel syndrome type: with both diarrhea and constipation Qualified Code(s): K58.2 - Mixed irritable bowel syndrome Plan Continue omeprazole before breakfast. Cholestyramine with meals. Patient was also encouraged to increase fiber in her diet. Avoid dietary triggers and late night snacking. Patient was encouraged to continue low FODMAP diet. List of food recommended as well as list of food to avoid given to patient. Patient will call us back when she is ready to go for colonoscopy. However discussed with her the importance of going for the procedure. Patient is agreeable to this plan and verbalizes understanding of instructions. She was given the opportunity to ask questions and all questions answered. Thank you for allowing me to participate in her care Coding Level of Care Code Est Pt Level 3 (53562) Diagnoses Right upper quadrant abdominal pain R10.11 Chronic GERD K21.9 History of Helicobacter pylori infection Z86.19 Irritable bowel syndrome with both constipation and diarrhea K58.2 Irritable bowel syndrome type: with both diarrhea and constipation Time Spent (min) 30 Comment 20 minutes spent with patient and additional 10 minutes spent reviewing her records
[2024-04-27 14:32] VITALS: BP 150/92; PULSE 84; O2SAT 100; BMI 35.2
== END 2024-04-27 15:31 | disposition home or self-care (01) ==
PROVIDERS: PCP Internal Medicine; Visit Provider Nurse Practitioner Family
DX: R10.11 Right upper quadrant pain (principal); K21.9 Gastro-esophageal reflux disease without esophagitis; Z86.19 Personal history of other infectious and parasitic diseases; K58.2 Mixed irritable bowel syndrome
CPT/HCPCS: 99213

== ENCOUNTER → 2024-04-27 14:16 | Outpatient (BNVA) | payer OTHER, SELFPAY | PROVIDERS: PCP Internal Medicine; Visit Provider Nurse Practitioner Family ==

== ENCOUNTER 2024-09-14 11:03 | Outpatient (AMB) | payer OTHER, SELFPAY ==
--- NOTE | 2024-09-14 11:10 | MHC.OFFWIV ---
Intake Vital Signs 09/14/24 11:11 Height 5 ft 9.5 in Weight 242 lb BMI 35.2 BP 140/82 H Blood Pressure Location Rt brachial Position Sitting Pulse 88 Pulse Source Pulse Oximeter Temp 98.2 F Temp Source Temporal Artery Scan Pulse Oximetry (%) 98 Intake Visit Reasons: EP-neck rash Intake Note: pt is here for c/o rash on neck Patient Tobacco Use Status: Never used Tobacco Allergies codeine Adverse Reaction (Intermediate, Verified 09/14/24 11:11) chills sertraline Adverse Reaction (Intermediate, Verified 09/14/24 11:11) severe depression, suicidal thoughts Do you need a note to return to daycare/school/sports/work: No HPI HPI Comments History of Present Illness Details Patient is a 64-year-old female complaining of a rash around her neck for the last 2 weeks. She states she has had several new medications over the last 2 weeks including a retinal cream that she applied to her neck, semaglutide injections, she went to a place called the drip and had some IV medications and fluids infused. She has never for use the retinal cream prior. She states the rash is itchy and it montalvo and it is worse at night. She tells me she typically has very sensitive skin. She does not see a office clerk routine. [facility] Medical History Severe depression GERD (gastroesophageal reflux disease) Surgical History Hx of cataract removal with insertion of prosthetic lens History of cholecystectomy History of tubal ligation Family History Father Diabetes Hypertension Stroke Heart murmur Mother Diabetes Hypertension Bursitis Tendonitis Arthritis Paternal Grandmother Colon cancer Social History Housing: House Alcohol intake: current Alcohol intake frequency: holidays/special occasions only Alcohol type: other Patient Tobacco Use Status: Never used Tobacco e-Cigarette/Vaping Use: Never Used Second Hand Smoke Exposure: No service: No Current occupational status: employed Current occupational exposures/hazards: No Cognitive needs: No Hearing needs: No Vision needs: Yes Review of Systems Const All systems reviewed & are unremarkable except as noted in HPI and below Physical Exam Vital Signs: Last Vital Signs Temp 98.2 F 09/14/24 11:11 Pulse 88 09/14/24 11:11 BP 140/82 H 09/14/24 11:11 Pulse Ox 98 09/14/24 11:11 BMI result Body Mass Index 35.2 Const General: cooperative, healthy appearing, comfortable and no acute distress Orientation/consciousness: patient oriented x3 Limitations: no limitations HEENT Head: Yes normal to inspection Eyes General: appearance normal, both eyes and all related structures Resp Effort & Inspection: normal respiratory effort and able to speak in complete sentences Skin Other: large area around neck, hyperpigmented, lichenification with no warmth, vesicles or lesions noted. Neuro General: patient oriented x3 Assessment & Plan Assessment & Plan (1) Atopic dermatitis in adult: Code(s): L20.9 - Atopic dermatitis, unspecified Plan: Rash is consistent with an atopic dermatitis, likely secondary to the retinal use. Recommended she stop using the retinol and use the triamcinolone cream twice a day for the next 1-2 weeks. I will send a dermatology referral in case the rash does not clear up and she needs to see a office clerk routine. Plan See above Orders: Referrals Dermatology Referral L20.9 - Atopic dermatitis, unspecified Medications: New triamcinolone acetonide 0.1% 1 appl topical BID 30 grams 0RF hydroxyzine HCl 25 mg PO BEDTIME 14 tabs 0RF Coding Level of Care Code Est Pt Level 4 (64752) Diagnoses Atopic dermatitis in adult L20.9
[2024-09-14 11:11] VITALS: BP 140/82; PULSE 88; TEMP 36.8; O2SAT 98; BMI 35.2
== END 2024-09-14 11:57 | disposition home or self-care (01) ==
PROVIDERS: PCP Internal Medicine; Visit Provider Physician Assistant
DX: L20.9 Atopic dermatitis, unspecified (principal)

== ENCOUNTER → 2024-09-14 11:03 | Outpatient (BNVA) | payer OTHER, SELFPAY | PROVIDERS: PCP Internal Medicine; Visit Provider Physician Assistant ==

== ENCOUNTER 2024-09-27 10:43 | Outpatient (AMB) | payer OTHER, SELFPAY ==
--- NOTE | 2024-09-27 10:58 | MHC.OFFVIS ---
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 Manager Web Application Required: No Director Sales And Marketing: Director Sales And Marketing Present (Brandy) Allergies codeine Adverse Reaction (Intermediate, Verified 09/27/24 11:01) chills sertraline Adverse Reaction (Intermediate, Verified 09/27/24 11:01) severe depression, suicidal thoughts HPI Comments Details: Presenting for annual exam. No complaints. The patient is interested in STD screen Last Pap/HPV was ascus/HPV negative, elevated estrogen for the patient's age and history Last Mammogram was BI-RADS 1 in 07/08 No previous screening Colonoscopy PFSH Medical History Severe depression GERD (gastroesophageal reflux disease) Surgical History Hx of cataract removal with insertion of prosthetic lens History of cholecystectomy History of tubal ligation Family History Father Diabetes Hypertension Stroke Heart murmur Mother Diabetes Hypertension Bursitis Tendonitis Arthritis Paternal Grandmother Colon cancer Social History Housing: House Alcohol intake: current Alcohol intake frequency: holidays/special occasions only Alcohol type: other Patient Tobacco Use Status: Never used Tobacco e-Cigarette/Vaping Use: Never Used Second Hand Smoke Exposure: No service: No Current occupational status: employed Current occupational exposures/hazards: No Cognitive needs: No Hearing needs: No Vision needs: Yes Female Reproductive History Menstrual Total pregnancies: 4 Full term: 3 Ab spontaneous: 1 Review of Systems Const All systems reviewed & are unremarkable except as noted in HPI and below Card Reports as per HPI Resp Reports as per HPI GI Reports as per HPI and Reports no additional complaints Reports as per HPI Physical Exam Const General: cooperative, healthy appearing and comfortable Chest Chest palpation & inspection: normal inspection of the chest and normal palpation of entire chest wall Breast/axilla inspection: normal inspection of the breasts and normal inspection of the axillae Breast/axilla palpation: normal palpation of the breasts, normal palpation of the axillae and no axillary lymphadenopathy Resp Effort & Inspection: normal respiratory effort Auscultation: clear to auscultation bilaterally Percussion: percussion normal Cardio Palpation: normal PMI Rate: regular rate Rhythm: regular rhythm Heart sounds: no murmurs and no rubs Peripheral pulses: Peripheral pulses 2+ throughout GI Inspection: Yes normal to inspection Palpation (GI): Soft to palpation, nontender, no guarding, not rigid and No hepatosplenomegaly present Percussion: Yes normal to percussion Auscultation: normal bowel sounds Rectal Exam - Female: deferred General: Yes bladder normal to palpation External Female Exam: No lesion Speculum Exam - Vagina: normal appearance of the vagina, normal palpation, normal vaginal discharge and not erythematous Speculum Exam - Cervix: normal appearance of the cervix and normal palpation Bimanual exam- vagina & uterus: normal bimanual exam, normal palpation, uterine size normal, bladder normal to palpation, consistency normal and normal palpation Bimanual Exam- Adnexa, other: normal adnexae, no masses and no tenderness Assessment & Plan Assessment & Plan (1) Well woman exam: Comment: Ascus/HPV negative in 2022 Code(s): Z01.419 - Encounter for gynecological examination (general) (routine) without abnormal findings Category: Medical Plan: Co testing done. Counseled the patient about the recommended dietary allowance of 1200 mg of Calcium & 600 IU of vitamin D. Mammogram ordered. The patient was referred to GI for screening colonoscopy . The patient was instructed to perform monthly self-breast exams and schedule annual exam in a year. All questions answered and the patient verbalized understanding. (2) Enlarged uterus: Code(s): N85.2 - Hypertrophy of uterus Category: Medical Plan: Discussed with the patient the finding on pelvic exam, will order pelvic ultrasound. Instructions given the patient to schedule an ultrasound and a 2 week follow-up appointment. (3) Screen for STD (sexually transmitted disease): Code(s): Z11.3 - Encounter for screening for infections with a predominantly sexual mode of transmission Category: Medical Plan: STD screening tests done includes: BV panel for trichomonas, GC/CT will send patient for serology std screening for HIV, RPR, Hep b s Ag, HepC Ab. Instructions given the patient to schedule a follow-up appointment for repeat serology screen in 6 months for possible false negatives. Orders: Orders Syphilis Screen Today Z20.2 - Contact with and (suspected) exposure to infections with a predominantly sexual mode of transmission Hepatitis B Surface Antigen Today Z20.2 - Contact with and (suspected) exposure to infections with a predominantly sexual mode of transmission Hepatitis C Antibody Today Z20.2 - Contact with and (suspected) exposure to infections with a predominantly sexual mode of transmission MM tomosynthesis screening BI Today Z12.31 - Encounter for screening mammogram for malignant neoplasm of breast US pelvic and transvaginal Today N85.2 - Hypertrophy of uterus HIV Ab/Ag Today Z20.2 - Contact with and (suspected) exposure to infections with a predominantly sexual mode of transmission Referrals Gastroenterology Referral Z12.11 - Encounter for screening for malignant neoplasm of colon Coding Level of Care Code Est Pt Prev Care 40-64y(18589) Diagnoses Well woman exam Z01.419 Enlarged uterus N85.2 Screen for STD (sexually transmitted disease) Z11.3
== END 2024-09-27 11:47 | disposition home or self-care (01) ==
LOC: HO.HWS 10:43
PROVIDERS: PCP Internal Medicine; Visit Provider Obstetrics & Gynecology
DX: Z01.419 Encounter for gynecological examination (general) (routine) without abnormal findings (principal); N85.2 Hypertrophy of uterus; Z11.3 Encounter for screening for infections with a predominantly sexual mode of transmission
CPT/HCPCS: 99396

== ENCOUNTER 2024-09-27 10:43 | Outpatient (REF) | payer OTHER, SELFPAY ==
[2024-09-27 13:49] LABS: HPV 16,18/45 See PAP report
[2024-09-27 18:07] LABS: Bacterial Vaginosis PCR NEGATIVE (Negative); Candida Group PCR NOT DETECTED (Not Detect); Candida glab krusei PCR NOT DETECTED (Not Detect); Trichomonas vaginalis PCR NOT DETECTED (Not Detect)
[2024-09-27 18:39] LABS: CT PCR NOT DETECTED (Not Detect.); NG PCR NOT DETECTED (Not Detect.)
[2024-09-28 08:00] LABS: Syphilis Screen Nonreactive (Nonreactive)
[2024-09-28 08:16] LABS: HBsAGNum1 0.21 S/CO (0.00-0.99); HIV AB/AG Nonreactive (Nonreactive); Hepatitis B Surface Antigen Negative (Negative); ~HepC Num1 0.07 S/CO (0.00-0.79); ~Hepatitis C Antibody Nonreactive (Nonreactive)
== END 2024-09-27 10:44 | disposition home or self-care (01) ==
LOC: HO.LNP 10:43
PROVIDERS: PCP Internal Medicine; Visit Provider Obstetrics & Gynecology
DX: Z01.419 Encounter for gynecological examination (general) (routine) without abnormal findings (principal); Z11.3 Encounter for screening for infections with a predominantly sexual mode of transmission; Z20.2 Contact with and (suspected) exposure to infections with a predominantly sexual mode of transmission; N85.2 Hypertrophy of uterus
CPT/HCPCS: 0352U; 86780; 86803; 87340; 87389; 87491; 87591; 87624; 88175

== ENCOUNTER 2024-09-27 11:27 | Outpatient (REF) | payer OTHER, SELFPAY | END 2024-09-27 11:28 | disposition home or self-care (01) | LOC: HO.LAB 11:27 | PROVIDERS: PCP Internal Medicine; Visit Provider Obstetrics & Gynecology | DX: Z13.89 Encounter for screening for other disorder (principal) ==

== ENCOUNTER 2024-09-28 12:46 | Outpatient (AMB) | payer OTHER, SELFPAY ==
--- NOTE | 2024-09-28 12:57 | A.OFFPC_ITS ---
Vital Signs 09/28/24 13:11 Height 5 ft 9.5 in Weight 235 lb BMI 34.2 BP 150/90 H Blood Pressure Location Lt brachial Position Sitting Intake Visit Reasons: Annual Exam Intake Note: Patient here for an Annual Physical Exam Developer Automatic Required: No Accompanied by: Self / Same As Patient Allergies codeine Adverse Reaction (Intermediate, Verified 09/28/24 13:27) chills sertraline Adverse Reaction (Intermediate, Verified 09/28/24 13:27) severe depression, suicidal thoughts Medication List - Last Reconciled 09/28/24 by Claire Rodriguez MD gabapentin 300 mg PO TID hydroxyzine HCl 25 mg PO BEDTIME omeprazole 20 mg PO DAILY sennosides (Natural Senna Laxative) 17.2 mg (2 x 8.6 mg) PO BEDTIME triamcinolone acetonide 0.1% 1 appl topical BID Tobacco use date assessed: 01/14/24 Dental Screening Dental Screen Date: 09/28/24 Did you have a dental visit in the last 12 months?: No Did you have a dental problem in the last 6 months where you did not have access to dental care?: No Was dental information given to patient?: Patient has dentist HPI HPI Comments History of Present Illness Details This is a 64-year-old female that comes for her physical exam. She has mild major depression and follows with counseling. Mammogram done 2023. Colonoscopy still pending and I will send her through open access. DEXA scan done 2023 was normal. Pap smear done 2022 shows ascus and Pap smear was repeated this year but results are still pending. Complains of diffuse joint pain and would like claire test. [facility] Medical History (Updated 09/28/24 @ 13:35 by Claire Rodriguez MD) Severe depression GERD (gastroesophageal reflux disease) Surgical History Hx of cataract removal with insertion of prosthetic lens History of cholecystectomy History of tubal ligation Family History (Updated 09/28/24 @ 13:34 by Claire Rodriguez MD) Father Diabetes Hypertension Stroke Heart murmur Colon polyps Mother Diabetes Hypertension Bursitis Tendonitis Arthritis Brain aneurysm Paternal Grandmother Colon cancer Social History Housing: House Alcohol intake: current Alcohol intake frequency: holidays/special occasions only Alcohol type: other Patient Tobacco Use Status: Never used Tobacco e-Cigarette/Vaping Use: Never Used Second Hand Smoke Exposure: No service: No Current occupational status: employed Current occupational exposures/hazards: No Cognitive needs: No Hearing needs: No Vision needs: Yes Questionnaire PHQ-9 Over the last 2 weeks, how often have you been bothered by any of the following problems? 1. Little interest or pleasure in doing things: several days 2. Feeling down, depressed, or hopeless: nearly every day 3. Trouble falling or staying asleep, or sleeping too much: not at all 4. Feeling tired or having little energy: more than half the days 5. Poor appetite or overeating: not at all 6. Feeling bad about yourself - or that you are a failure or have let yourself or your family down: not at all 7. Trouble concentrating on things, such as reading the newspaper or watching television: not at all 8. Moving or speaking so slowly that other people could have noticed. Or the opposite - being so fidgety or restless that you have been moving around a lot more than usual: not at all 9. Thoughts that you would be better off or of hurting yourself in some way: not at all Total score: 6 Depression Screening Interpretation: Positive Depression Screening Follow-up: Existing condition, Community Mental Health Worker F/U and Follow-up Visit Requested Depression Screening Done: Yes 30681 - PHQ-9 Billing: Yes Source: Developed by Drs. Ronak Hull, Calista Bolden, Karlo Palma and colleagues, with an educational robby from [employer]. Thrive Questionnaire Date Thrive assessed: 09/28/24 I am a: Patient What is your living situation today?: I have a steady place to live Within the past 12 months, did the food you bought not last and you didn't have the money to get more?: Never true Within the past 12 months, did you worry whether your food would run out before you got money to buy more?: Never true Do you have trouble paying for medicines?: No Do you have trouble getting transportation to medical appointments?: No Do you have trouble paying your heating and electricity bill?: No Do you have trouble taking care of your child, family member or friend?: No Do you have trouble with day-to-day activities such as bathing, preparing meals, shopping, managing finances, etc.?: No Are you currently unemployed and looking for a job?: No Are you interested in more education?: Yes Please select the resources that you would like help with: None Currently or been in a relationship where the following occur: I choose not to answer THRIVE Score: 0 AUDIT C Alcohol Use Questionnaire (AUDIT-C) 1. How often do you have a drink containing alcohol?: Monthly or less 2. How many drinks containing alcohol do you have on a typical day when you are drinking?: 1 or 2 3. How often do you have six or more drinks on one occasion?: Never Total Score: 1 Score Reviewed/Action Taken: No JYOTSNA-7 AMB Questionnaire JYOTSNA-7 Date JYOTSNA - 7 assessed: 01/14/24 Feeling nervous, anxious, or on edge: 3 = Nearly every day Not being able to stop or control worryin = Nearly every day Worrying too much about different things: 3 = Nearly every day Trouble relaxin = Nearly every day Being so restless that it is hard to sit still: 3 = Nearly every day Becoming easily annoyed or irritable: 3 = Nearly every day Feeling afraid as if something awful might happen: 3 = Nearly every day Total JYOTSNA-7 score (0-4 normal; 5-9 mild; 10-14 moderate; 15-21 severe): 21 Source: Developed by Drs. Ronak Hull, Calista Bolden, Karlo Palma and colleagues, with an educational robby from [employer]. JYOTSNA-7 Assessment Billing JYOTSNA-7 Assessment Tool: JYOTSNA-7 Assessment 94595 Review of Systems Const All systems reviewed & are unremarkable except as noted in HPI and below Card Denies chest pain at rest, Denies chest pain with activity, Denies edema, Denies irregular heart rhythm, Denies claudication, Denies dyspnea, Denies dyspnea on exertion, Denies orthopnea, Denies paroxysmal nocturnal dyspnea and Denies slow heart rate Resp Denies cough, Denies dyspnea and Denies dyspnea on exertion GI Denies abdominal pain, Denies change in bowel habits, Denies excessive flatus, Denies nausea and Denies vomiting Musc Reports arthralgias Physical exam (Primary Care) Vital Signs: Last Vital Signs BP 150/90 H 09/28/24 13:11 Care Plan Goal for BP management: Recheck blood pressure with nurse navigator in 3 weeks. BMI result Body Mass Index 34.2 BMI Assessment/Plan discussion: High BMI High, discussed plan: lifestyle, weight reduction and dietary Tobacco/Smoking Status: Tobacco use Status Tobacco use date assessed 01/14/24 09/28/24 12:57 Patient Tobacco Use Status Never used Tobacco 09/28/24 12:57 e-Cigarette/Vaping Use Never Used 09/28/24 12:57 PHQ-9: PHQ-9 Score PHQ-9: Total score 6 09/28/24 13:32 Depression Screening Interpretation: Positive Depression Screening Follow-up: Existing condition, Community Mental Health Worker F/U and Follow-up Visit Requested Thrive Assessment: Date of Thrive Assessment Date Thrive assessed 09/28/24 09/28/24 12:57 Currently or been in a relationship where the following occur: I choose not to answer HENMT Head: Yes normal to inspection, Yes normocephalic and Yes atraumatic Ears: external ears normal Eyes General: appearance normal, both eyes and all related structures Eyelids: Yes eyelids normal Conjunctivae: conjunctivae normal Neck Neck: Yes normal visual inspection and Yes supple Resp Effort & Inspection: normal respiratory effort Auscultation: clear to auscultation bilaterally Cardio Jugular venous distension: no JVD Rate: regular rate Rhythm: regular rhythm Heart sounds: S1 normal heart sound present and S2 normal heart sound present GI Inspection: Yes normal to inspection Palpation (GI): Soft to palpation and nontender Auscultation: normal bowel sounds Skin General skin exam: no rashes or lesions noted Neuro General: no focal motor deficits Extrem General: Yes full ROM Psych Appearance: grossly normal Office Procedures Flu Questionnaire Does the patient have a severe egg allergy?: No Immunizations Fluarix Triv [id number] (PF) 45 mcg (15 mcg x 3)/0.5 mL IM syringe Performing Provider: Claire Rodriguez MD [place] [facility] [place] [facility] Documented (not given) by: GEM Moreno on 09/28/24 13:19 Reason Not Given: Patient Refused Coding Level of Care Code Est Pt Level 3 (07902) Est Pt Prev Care 40-64y(83754) Diagnoses Physical exam Z00.00 Polyarthralgia M25.50 Additional Codes JYOTSNA-7 Assessment Billing - JYOTSNA-7 Assessment Tool: JYOTSNA-7 Assessment 22111 ([id number]) PHQ-9 - 26101 - PHQ-9 Billing: Yes ([id number]) Time Spent (min) 34 Assessment & Plan Assessment & Plan (1) Physical exam: Code(s): Z00.00 - Encounter for general adult medical examination without abnormal findings Category: Medical Plan: Repeat in a year. (2) Polyarthralgia: Code(s): M25.50 - Pain in unspecified joint Category: Medical Plan: CLAIRE test ordered. Increase gabapentin. Orders: Orders Comprehensive [place]. Panel Fast Today Z00.00 - Encounter for general adult medical examination without abnormal findings Lipid Panel Today Z00.00 - Encounter for general adult medical examination without abnormal findings Influenza [id number] Immunization Today Z23 - Encounter for immunization CLAIRE Reflex Titer and Pattern Today M25.50 - Pain in unspecified joint Referrals Open Access Screening Colonoscopy Referral Z12.12 - Encounter for screening for malignant neoplasm of rectum
[2024-09-28 13:11] VITALS: BP 150/90; BMI 34.2
== END 2024-09-28 13:42 | disposition home or self-care (01) ==
PROVIDERS: PCP Internal Medicine; Visit Provider Internal Medicine
DX: Z00.00 Encounter for general adult medical examination without abnormal findings (principal); M25.50 Pain in unspecified joint

== ENCOUNTER → 2024-09-28 12:46 | Outpatient (BNVA) | payer OTHER, SELFPAY | PROVIDERS: PCP Internal Medicine; Visit Provider Internal Medicine | DX: Z00.00 Encounter for general adult medical examination without abnormal findings (principal); M25.50 Pain in unspecified joint; Z28.21 Immunization not carried out because of patient refusal | CPT/HCPCS: 96127 ==

== ENCOUNTER 2024-10-04 11:13 | Outpatient (REF) | payer OTHER, SELFPAY ==
--- NOTE | ~2024-10-04 | US_ITS ---
EXAMINATION: US PELVIS CLINICAL INFORMATION: Hypertrophy of uterus COMPARISON: None available. TECHNIQUE: Ultrasound of the pelvis is performed using both transabdominal and transvaginal transducers along with Doppler. Transvaginal imaging is performed due to inadequate visualization transabdominally. FINDINGS: Uterus: The uterus is anteverted and anteflexed and measures 6.7 x 3.5 x 7.3 cm. Uterine volume 90 mL. The double wall endometrial thickness is 4 mm. Large lobular uterus. 1. Central fundal fibroid 3.3 x 2.2 x 2.7 cm 2. Right distal body fibroid 2.6 x 3 x 2.6 cm. 3. Left frontal fibroid measuring 5.7 x 5.2 x 5.5 cm. Adnexa: Right adnexa: No abnormality. Right ovary not visualized. Left adnexa: Left ovary is visualized. Left ovary measures 2 x 1.7 x 1.5 cm for a volume of 2.7 mL. There is normal color flow to the adnexa. There is no ovarian torsion. There is no pelvic ascites or fluid collection. Cul-de-sac: No fluid. US/US pelvic and transvaginal IMPRESSION: 1. Multiple uterine fibroids. 2. Normal left ovary. Right ovary not visualized. Electronically signed by: Pratik Pavon MD 10/04/2024 05:21 PM EST
== END 2024-10-04 11:14 | disposition home or self-care (01) ==
LOC: HO.US 11:13
PROVIDERS: PCP Internal Medicine; Visit Provider Obstetrics & Gynecology
DX: N85.2 Hypertrophy of uterus (principal)
CPT/HCPCS: 76830; 76856

== ENCOUNTER 2024-10-06 12:13 | Outpatient (AMB) | payer OTHER, SELFPAY ==
--- NOTE | 2024-10-06 12:15 | MHC.OFFVIS ---
Intake Visit Reasons: labs results Allergies codeine Adverse Reaction (Intermediate, Verified 09/28/24 13:27) chills sertraline Adverse Reaction (Intermediate, Verified 09/28/24 13:27) severe depression, suicidal thoughts HPI Comments Details: The patient is scheduled tele health visit to discuss the results the ultrasound regarding enlarged uterus detected on pelvic exam. Pelvic ultrasound done in 10/09 showed the following: Uterus: The uterus is anteverted and anteflexed and measures 6.7 x 3.5 x 7.3 cm. Uterine volume 90 mL. The double wall endometrial thickness is 4 mm. Large lobular uterus. 1. Central fundal fibroid 3.3 x 2.2 x 2.7 cm 2. Right distal body fibroid 2.6 x 3 x 2.6 cm. 3. Left frontal fibroid measuring 5.7 x 5.2 x 5.5 cm. Adnexa: Right adnexa: No abnormality. Right ovary not visualized. The patient is doing well with no complaints no pelvic pressure, pain or vaginal bleeding [facility] Medical History Severe depression GERD (gastroesophageal reflux disease) Surgical History Hx of cataract removal with insertion of prosthetic lens History of cholecystectomy History of tubal ligation Family History Father Diabetes Hypertension Stroke Heart murmur Colon polyps Mother Diabetes Hypertension Bursitis Tendonitis Arthritis Brain aneurysm Paternal Grandmother Colon cancer Social History Housing: House Alcohol intake: current Alcohol intake frequency: holidays/special occasions only Alcohol type: other Patient Tobacco Use Status: Never used Tobacco e-Cigarette/Vaping Use: Never Used Second Hand Smoke Exposure: No service: No Current occupational status: employed Current occupational exposures/hazards: No Cognitive needs: No Hearing needs: No Vision needs: Yes Review of Systems Const All systems reviewed & are unremarkable except as noted in HPI and below Reports as per HPI and Reports no additional complaints GI Reports no additional complaints Reports no additional complaints Telehealth Telehealth Telehealth Platform: Telephone Location of provider rendering services: practice address Location of patient: address on file Patient Identification confirmed using: Name, : Yes Telehealth method: video Patient verbally consented to treatment: Yes Patient verbally consented to billing insurance company: Yes Patient informed of any privacy concerns related to visit: Yes Assessment & Plan Assessment & Plan (1) Uterine myoma: Code(s): D25.9 - Leiomyoma of uterus, unspecified Category: Medical Plan: Discussed with the patient the findings on pelvic ultrasound & the risk of myosarcoma; discussed with the patient the options of treatment including expectant management versus hysterectomy; the pros and cons, risks benefits of each approach were discussed with the patient including the fact that in cases of myosarcoma, surgical treatment can lead to early diagnosis and positively affects the prognosis; after further discussion, the patient decided to proceed with expectant management. Will repeat pelvic ultrasound periodically. Instructions given to patient to call in case any of the following occurs: pressure symptoms, abnormal uterine bleeding, pelvic pain; and to schedule a six-months pelvic ultrasound and a follow-up appointment . All questions answered, the patient verbalized understanding and agreed with the plan . I spent a total of 20 minutes reviewing the chart, talking to the patient via video and documenting in the medical record. Orders: Orders US pelvic and transvaginal 6 Months D25.9 - Leiomyoma of uterus, unspecified Coding Level of Care Code Tele Est Pt Level 3 (69616) Diagnoses Uterine myoma D25.9
== END 2024-10-06 16:58 | disposition home or self-care (01) ==
LOC: HO.HWS 12:13
PROVIDERS: PCP Internal Medicine; Visit Provider Obstetrics & Gynecology
DX: D25.9 Leiomyoma of uterus, unspecified (principal)
CPT/HCPCS: 99213

== ENCOUNTER 2024-11-22 11:01 | Outpatient (REF) | payer OTHER, SELFPAY ==
--- NOTE | ~2024-11-22 | MM_ITS ---
EXAMINATION: MM SCREENING DIGITAL BREAST TOMOSYNTHESIS, BILATERAL CLINICAL INFORMATION: Screening. Asymptomatic. COMPARISON: Mammography: Comparison is made with available priors TECHNIQUE: Digital breast mammography with tomosynthesis is performed in both the craniocaudal and mediolateral oblique views along with computer-aided detection (CAD). FINDINGS: There are scattered areas of fibroglandular density (ACR BI-RADS breast composition Category b). There are no significant masses, abnormal calcifications, or other abnormalities. MM/MM tomosynthesis screening BI IMPRESSION: No mammographic evidence of malignancy. ASSESSMENT: BI-RADS BI-RADS 1 - Negative RECOMMENDATION: Routine annual mammography screening. 1 year F/U This examination should not preclude the clinical evaluation of a suspicious palpable abnormality. This patient's information was entered into a reminder system with a target due date for their next mammogram. Electronically signed by: Patricia Williamson DO 11/28/2024 03:58 PM TORY
== END 2024-11-22 11:02 | disposition home or self-care (01) ==
LOC: HO.MAMMO 11:01
PROVIDERS: PCP Internal Medicine; Visit Provider Obstetrics & Gynecology
DX: Z12.31 Encounter for screening mammogram for malignant neoplasm of breast (principal)
CPT/HCPCS: 77063; 77067

== ENCOUNTER → 2024-11-22 11:15 | Outpatient (BNV) | payer OTHER, SELFPAY | PROVIDERS: PCP Internal Medicine; Visit Provider Internal Medicine | DX: Z12.31 Encounter for screening mammogram for malignant neoplasm of breast (principal) | CPT/HCPCS: 77063; 77067 ==

== ENCOUNTER 2024-12-20 16:23 | Outpatient (AMB) | payer OTHER, SELFPAY ==
--- OUTSIDE RECORDS SUMMARY | 2024-12-20 16:25 | XMS_ITS | Clinical Summary ---
Author Organization [employer] Address [address] [place] [address] Care Team Providers Care Value Advisor Name Role Phone Baldo Hamlin MD Primary Care Prov ider Medications gabapentin (Neurontin) 300 MG capsule TAKE 1 CAPSULE BY MOUTH THREE TIMES A DAY 02/23/2023 Active Social History Tobacco Use Types Packs/Day Years Used Date Smoking Tobacco: Never Assessed Comments Unknown Sex and Gender Information Value Date Recorded Sex Assigned at Female 09/15/2022 10:16 AM EDT Legal Sex Female 10:16 AM EDT Gender Identity Choose not to disclose 10:16 AM EDT Sexual Orientation Choose not to disclose 2021 10:16 AM EDT Plan of Treatment Health Maintenance Due Date Last Done Comments CT Colonography 1962 Colonoscopy 1962 Colorectal Cancer Screening 1962 Depression Screening 1962 FIT DNA/Cologuard 1962 FIT 1962 FOBT 1962 Sigmoidoscopy 1962 Alcohol/Substance Use Screening 1974 Tobacco Screening 1974 DTaP/Tdap/Td Vaccines (1 - Tdap) 1981 Pap Smear 1983 Cervical Cancer Screening 1992 HPV/Cotest 1992 Mammogram 2002 Pneumococcal Vaccine: 50+ Ye ars (1 of 1 - PCV) 2012 Zoster Vaccines (1 of 2) 2012 COVID-19 Vaccine (2023-2 5 season) 2024 Influenza Vaccine (#1) 2024 RSV Patients and Pa tients Aged 60 years or older (1 - 1-dose 75+ series) 2037 HIB Vaccines Aged Out No longer eligi ble based on patient's age to complete this topic HPV Vaccines Aged Out No longer eligi ble based on patient's age to complete this topic Hepatitis A Vaccines Aged Out No long er eligible based on patient's age to complete this topic Hepatitis B Vaccines Aged Out No long er eligible based on patient's age to complete this topic IPV Vaccines Aged Out No longer eligi ble based on patient's age to complete this topic Meningococcal Vaccine Aged Out No mariam franck eligible based on patient's age to complete this topic Pneumococcal Vaccine: Pediat rics (0 to 5 Years) and At-Risk Patients (6 to 49) Years) Aged Out No longer eligible b ased on patient's age to complete this topic RSV under 20 months Aged Out No longe r eligible based on patient's age to complete this topic Rotavirus Vaccines Aged Out No longer eligible based on patient's age to complete this topic Care Teams Value Advisor Relationship Specialty Start Date End Date Baldo Hamlin MD [address] [place] [id number] PCP - General Internal Medicine 11/29/20
[2024-12-20 16:31] VITALS: BP 150/90; BMI 36.4
--- NOTE | 2024-12-20 16:31 | A.OFFPC_ITS ---
Vital Signs 12/20/24 16:31 Height 5 ft 9.5 in Weight 250 lb BMI 36.4 BP 150/90 H Blood Pressure Location Lt brachial Position Sitting Intake Visit Reasons: hand pain, FMLA Pan Devulcanizer Helper Required: Yes Pan Devulcanizer Helper Language: Building Materials Sales Attendant Name: Claire Rodriguez MD Information Interpreted: non-clinical & clinical Accompanied by: Self / Same As Patient Allergies codeine Adverse Reaction (Intermediate, Verified 12/20/24 16:50) chills sertraline Adverse Reaction (Intermediate, Verified 12/20/24 16:50) severe depression, suicidal thoughts Medication List - Last Reconciled 12/20/24 by Claire Rodriguez MD gabapentin 400 mg PO TID 30 days hydroxyzine HCl 25 mg PO BEDTIME omeprazole 20 mg PO DAILY sennosides (Natural Senna Laxative) 17.2 mg (2 x 8.6 mg) PO BEDTIME triamcinolone acetonide 0.1% 1 appl topical BID Tobacco use date assessed: 12/20/24 Dental Screening Dental Screen Date: 12/20/24 Did you have a dental visit in the last 12 months?: Yes Did you have a dental problem in the last 6 months where you did not have access to dental care?: No Was dental information given to patient?: Patient has dentist HPI HPI Comments History of Present Illness Details The patient is a 64-year-old female presenting with anxiety and stress. 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 She described recent incidents contributing to her stress, including the of two clients within 11 days and family-related stress with her brother's severe spinal injury. The patient mentions having difficulty managing her workload and emotional distress. She describes symptoms of heightened anxiety, episodes of uncontrollable hunger, and challenges related to gastrointestinal issues for which she uses a specific medication regimen. Her medical history includes essential hypertension, for which she is currently on medication but notes recent elevations likely linked to stress. She expresses concerns about her current emotional and physical health, recognizing the need for a break from work to alleviate symptoms and prevent further decline. She also has hypertension and currently takes no medication. Blood pressure elevated today and will be recheck in 3 weeks by nurse navigator. [facility] Medical History (Updated 12/20/24 @ 20:23 by Claire Rodriguez MD) Severe depression GERD (gastroesophageal reflux disease) Surgical History Hx of cataract removal with insertion of prosthetic lens History of cholecystectomy History of tubal ligation Family History Father Diabetes Hypertension Stroke Heart murmur Colon polyps Mother Diabetes Hypertension Bursitis Tendonitis Arthritis Brain aneurysm Paternal Grandmother Colon cancer Social History Housing: House Alcohol intake: current Alcohol intake frequency: holidays/special occasions only Alcohol type: other Patient Tobacco Use Status: Never used Tobacco e-Cigarette/Vaping Use: Never Used Second Hand Smoke Exposure: No service: No Current occupational status: employed Current occupational exposures/hazards: No Cognitive needs: No Hearing needs: No Vision needs: Yes Questionnaire PHQ-9 Over the last 2 weeks, how often have you been bothered by any of the following problems? 1. Little interest or pleasure in doing things: more than half the days 2. Feeling down, depressed, or hopeless: nearly every day 3. Trouble falling or staying asleep, or sleeping too much: nearly every day 4. Feeling tired or having little energy: nearly every day 5. Poor appetite or overeating: nearly every day 6. Feeling bad about yourself - or that you are a failure or have let yourself or your family down: several days 7. Trouble concentrating on things, such as reading the newspaper or watching television: more than half the days 8. Moving or speaking so slowly that other people could have noticed. Or the opposite - being so fidgety or restless that you have been moving around a lot more than usual: more than half the days 9. Thoughts that you would be better off or of hurting yourself in some way: not at all Total score: 19 Depression Screening Interpretation: Positive (no suicidal thoughts) Depression Screening Follow-up: Existing condition, In treatment, Community Mental Health Worker F/U and Follow-up Visit Requested Depression Screening Done: Yes 77720 - PHQ-9 Billing: Yes Source: Developed by Drs. Ronak Hull, Calista Bolden, Karlo Palma and colleagues, with an educational robby from [employer]. Thrive Questionnaire Date Thrive assessed: 12/20/24 I am a: Patient What is your living situation today?: I have a steady place to live Within the past 12 months, did the food you bought not last and you didn't have the money to get more?: Never true Within the past 12 months, did you worry whether your food would run out before you got money to buy more?: Never true Do you have trouble paying for medicines?: No Do you have trouble getting transportation to medical appointments?: No Do you have trouble paying your heating and electricity bill?: No Do you have trouble taking care of your child, family member or friend?: No Do you have trouble with day-to-day activities such as bathing, preparing meals, shopping, managing finances, etc.?: No Are you currently unemployed and looking for a job?: No Are you interested in more education?: Yes Please select the resources that you would like help with: None Currently or been in a relationship where the following occur: I choose not to answer THRIVE Score: 0 AUDIT C Alcohol Use Questionnaire (AUDIT-C) 1. How often do you have a drink containing alcohol?: Monthly or less 2. How many drinks containing alcohol do you have on a typical day when you are drinking?: 1 or 2 3. How often do you have six or more drinks on one occasion?: Never Total Score: 1 Score Reviewed/Action Taken: No JYOTSNA-7 AMB Questionnaire JYOTSNA-7 Date JYOTSNA - 7 assessed: 12/20/24 Feeling nervous, anxious, or on edge: 3 = Nearly every day Not being able to stop or control worryin = Several days Worrying too much about different things: 2 = More than half the days Trouble relaxin = More than half the days Being so restless that it is hard to sit still: 1 = Several days Becoming easily annoyed or irritable: 2 = More than half the days Feeling afraid as if something awful might happen: 0 = Not at all Total JYOTSNA-7 score (0-4 normal; 5-9 mild; 10-14 moderate; 15-21 severe): 11 Source: Developed by Drs. Ronak Hull, Karlo Denise and colleagues, with an educational robby from [employer]. JYOTSNA-7 Assessment Billing JYOTSNA-7 Assessment Tool: JYOTSNA-7 Assessment 06154 Review of Systems Const All systems reviewed & are unremarkable except as noted in HPI and below Card Denies chest pain at rest, Denies chest pain with activity, Denies edema, Denies irregular heart rhythm, Denies claudication, Denies dyspnea, Denies dyspnea on exertion, Denies orthopnea, Denies paroxysmal nocturnal dyspnea and Denies slow heart rate Resp Denies cough, Denies dyspnea and Denies dyspnea on exertion GI Denies abdominal pain, Denies change in bowel habits, Denies excessive flatus, Denies nausea and Denies vomiting Physical exam (Primary Care) Vital Signs: Last Vital Signs BP 150/90 H 12/20/24 16:31 BMI result Body Mass Index 36.4 BMI Assessment/Plan discussion: High BMI High, discussed plan: lifestyle, weight reduction, dietary and physical activity Tobacco/Smoking Status: Tobacco use Status Tobacco use date assessed 12/20/24 12/20/24 16:40 Patient Tobacco Use Status Never used Tobacco 12/20/24 16:40 e-Cigarette/Vaping Use Never Used 12/20/24 16:40 PHQ-9: PHQ-9 Score PHQ-9: Total score 19 12/20/24 16:53 Depression Screening Interpretation: Positive (no suicidal thoughts) Depression Screening Follow-up: Existing condition, In treatment, Community Mental Health Worker F/U and Follow-up Visit Requested Thrive Assessment: Date of Thrive Assessment Date Thrive assessed 12/20/24 12/20/24 16:40 Currently or been in a relationship where the following occur: I choose not to answer Resp Effort & Inspection: normal respiratory effort Auscultation: clear to auscultation bilaterally Cardio Jugular venous distension: no JVD Rate: regular rate Rhythm: regular rhythm Heart sounds: S1 normal heart sound present and S2 normal heart sound present Extrem General: Yes full ROM Coding Level of Care Code Est Pt Level 4 (47101) Complex EM visit Add On G2211 Diagnoses Mild major depression F32.0 Bile salt-induced diarrhea K90.89 Essential hypertension I10 Anxiety F41.9 PTSD (post-traumatic stress disorder) F43.10 Additional Codes JYOTSNA-7 Assessment Billing - JYOTSNA-7 Assessment Tool: JYOTSNA-7 Assessment 40157 ([id number]) PHQ-9 - 92538 - PHQ-9 Billing: Yes ([id number]) Time Spent (min) 23 Assessment & Plan Assessment & Plan (1) Mild major depression: Code(s): F32.0 - Major depressive disorder, single episode, mild Category: Medical (2) Bile salt-induced diarrhea: Code(s): K90.89 - Other intestinal malabsorption Category: Medical (3) Essential hypertension: Code(s): I10 - Essential (primary) hypertension Category: Medical (4) Anxiety: Code(s): F41.9 - Anxiety disorder, unspecified Category: Medical (5) PTSD (post-traumatic stress disorder): Code(s): F43.10 - Post-traumatic stress disorder, unspecified Category: Medical Plan - Anxiety: Advise time off from work to reduce stress levels. Patient to consider intermittent or continuous leave. - Hypertension: Re-evaluate medication plan considering recent stress-induced elevations. - Gastrointestinal Symptoms: Continue current gastrointestinal regimen. Consider referral to gastroenterology if symptoms persist. Patient was informed and verbally consented to the use of an ambient scribe for clinic note documentation during this visit. I discussed with the patient the likelihood that her anxiety and depression are exacerbated by her current occupational stress. We reviewed her need for a break, possibly utilizing intermittent leave, to alleviate this stress. I reassured her of her employment rights regarding leave for health reasons and encouraged her to liaise with Human Resources about the details of paid leave. The potential adjustments to her hypertension management were discussed, considering her reported high stress levels may be impacting her blood pressure. I also addressed her current gastrointestinal regimen and advised continuation unless symptoms change. We discussed ways to manage her anxiety and set a follow-up plan for reviewing her progress, regardless of whether the leave is continuous or intermittent. Medications: New cholestyramine (with sugar) 4 gram administer w/meal; avoid other meds within 1hr before or 4-6hr after dose 4 grams PO BID PRN 348.6 grams 0RF diarrhea 30 days Discontinued sennosides (Natural Senna Laxative) Discontinued Reason: Patient Completed Course 17.2 mg (2 x 8.6 mg) PO BEDTIME 60 tabs 3RF constipation K59.00 - Constipation, unspecified Patient Instructions: - Consider taking a break from work to manage stress and anxiety more effectively. - Maintain current medication regimen for hypertension and gastrointestinal symptoms, checking for any supply requirements. - Contact your Human Resources department for information about paid leave options for health reasons. - Monitor blood pressure regularly and record the readings. - Return for follow-up as discussed or if symptoms worsen.
== END 2024-12-20 17:11 | disposition home or self-care (01) ==
PROVIDERS: PCP Internal Medicine; Visit Provider Internal Medicine
DX: F32.0 Major depressive disorder, single episode, mild (principal); K90.89 Other intestinal malabsorption; I10 Essential (primary) hypertension; F41.9 Anxiety disorder, unspecified; F43.10 Post-traumatic stress disorder, unspecified

== ENCOUNTER → 2024-12-20 16:23 | Outpatient (BNVA) | payer OTHER, SELFPAY | PROVIDERS: PCP Internal Medicine; Visit Provider Internal Medicine | DX: F32.0 Major depressive disorder, single episode, mild (principal); K90.89 Other intestinal malabsorption; I10 Essential (primary) hypertension; F41.9 Anxiety disorder, unspecified; F43.10 Post-traumatic stress disorder, unspecified | CPT/HCPCS: 96127 ==

== ENCOUNTER 2025-03-28 11:11 | Outpatient (AMB) | payer OTHER, SELFPAY ==
--- NOTE | 2025-03-28 11:18 | MHC.PC.OV ---
Vital Signs 03/28/25 11:19 Height 5 ft 9.5 in Weight 242 lb BMI 35.2 BP 148/92 H Blood Pressure Location Lt brachial Position Sitting Intake Visit Reasons: depression Intake Note: Patient here for a follow up depression, FMLA forms Educational Sign Language Interpreter Required: No Accompanied by: Self / Same As Patient Allergies codeine Adverse Reaction (Intermediate, Verified 03/28/25 11:34) chills sertraline Adverse Reaction (Intermediate, Verified 03/28/25 11:34) severe depression, suicidal thoughts Medication List - Last Reconciled 03/28/25 by Claire Rodriguez MD cholestyramine (with sugar) 4 gram 4 grams PO BID PRN 30 days gabapentin 400 mg PO TID 30 days hydroxyzine HCl 25 mg PO BEDTIME omeprazole 20 mg PO DAILY triamcinolone acetonide 0.1% 1 appl topical BID Tobacco use date assessed: 12/20/24 Dental Screening Dental Screen Date: 12/20/24 HPI HPI Comments History of Present Illness Details The patient is a 64-year-old female presenting with hypertension and insomnia. Despite dietary modifications aimed at controlling her blood pressure, she reports persistently high readings, suggesting a requirement for medication. Her insomnia consists of a recurring pattern of late sleep onset around eleven, followed by premature awakening after three hours and a second period of wakefulness lasting another three hours. Daytime fatigue progresses notably by mid-morning and disrupts her activities. Additionally, she presents with mild major depressive disorder, recognized by a PHQ-9 score of 10. She communicated interest in initiating treatment with bupropion for potential benefits on mood and associated weight management. She denies any prior use of this medication. The patient has concurrent widespread pain, potentially linked to fibromyalgia, with reported exacerbation over the past year. She is currently navigating referral processes for further evaluation. [facility] Medical History (Updated 03/28/25 @ 11:58 by Claire Rodriguez MD) Severe depression GERD (gastroesophageal reflux disease) Surgical History Hx of cataract removal with insertion of prosthetic lens History of cholecystectomy History of tubal ligation Family History Father Diabetes Hypertension Stroke Heart murmur Colon polyps Mother Diabetes Hypertension Bursitis Tendonitis Arthritis Brain aneurysm Paternal Grandmother Colon cancer Social History Housing: House Alcohol intake: current Alcohol intake frequency: holidays/special occasions only Alcohol type: other Patient Tobacco Use Status: Never used Tobacco e-Cigarette/Vaping Use: Never Used Second Hand Smoke Exposure: No service: No Current occupational status: employed Current occupational exposures/hazards: No Cognitive needs: No Hearing needs: No Vision needs: Yes Questionnaire PHQ-9 Over the last 2 weeks, how often have you been bothered by any of the following problems? 1. Little interest or pleasure in doing things: several days 2. Feeling down, depressed, or hopeless: several days 3. Trouble falling or staying asleep, or sleeping too much: nearly every day 4. Feeling tired or having little energy: several days 5. Poor appetite or overeating: more than half the days 6. Feeling bad about yourself - or that you are a failure or have let yourself or your family down: not at all 7. Trouble concentrating on things, such as reading the newspaper or watching television: several days 8. Moving or speaking so slowly that other people could have noticed. Or the opposite - being so fidgety or restless that you have been moving around a lot more than usual: several days 9. Thoughts that you would be better off or of hurting yourself in some way: not at all Total score: 10 Depression Screening Interpretation: Positive Depression Screening Follow-up: Existing condition and Follow-up Visit Requested Depression Screening Done: Yes 31047 - PHQ-9 Billing: Yes Source: Developed by Drs. Ronak Hull, Calista Bolden, Karlo Palma and colleagues, with an educational robby from [employer]. Thrive Questionnaire Date Thrive assessed: 03/28/25 I am a: Patient What is your living situation today?: I have a steady place to live Within the past 12 months, did the food you bought not last and you didn't have the money to get more?: Never true Within the past 12 months, did you worry whether your food would run out before you got money to buy more?: I choose not to answer this question Do you have trouble paying for medicines?: I choose not to answer this question Do you have trouble getting transportation to medical appointments?: I choose not to answer this question Do you have trouble paying your heating and electricity bill?: I choose not to answer this question Do you have trouble taking care of your child, family member or friend?: I choose not to answer this question Do you have trouble with day-to-day activities such as bathing, preparing meals, shopping, managing finances, etc.?: I choose not to answer this question Are you currently unemployed and looking for a job?: I choose not to answer this question Are you interested in more education?: Yes Please select the resources that you would like help with: Job search/training Currently or been in a relationship where the following occur: No concerns reported THRIVE Score: 0 AUDIT C Alcohol Use Questionnaire (AUDIT-C) 1. How often do you have a drink containing alcohol?: Never Total Score: 0 Score Reviewed/Action Taken: No JYOTSNA-7 AMB Questionnaire JYOTSNA-7 Date JYOTSNA - 7 assessed: 03/28/25 Feeling nervous, anxious, or on edge: 1 = Several days Not being able to stop or control worryin = Several days Worrying too much about different things: 1 = Several days Trouble relaxin = Several days Being so restless that it is hard to sit still: 1 = Several days Becoming easily annoyed or irritable: 2 = More than half the days Feeling afraid as if something awful might happen: 1 = Several days Total JYOTSNA-7 score (0-4 normal; 5-9 mild; 10-14 moderate; 15-21 severe): 8 Source: Developed by Drs. Ronak Hull, Calista Bolden, Karlo Palma and colleagues, with an educational robby from [employer]. JYOTSNA-7 Assessment Billing JYOTSNA-7 Assessment Tool: JYOTSNA-7 Assessment 74368 Review of Systems Const All systems reviewed & are unremarkable except as noted in HPI and below Card Denies chest pain at rest, Denies chest pain with activity, Denies edema, Denies irregular heart rhythm, Denies claudication, Denies dyspnea, Denies dyspnea on exertion, Denies orthopnea, Denies paroxysmal nocturnal dyspnea and Denies slow heart rate Resp Denies cough, Denies dyspnea and Denies dyspnea on exertion Musc Denies atrophy, Denies deformity and Denies limited range of motion Skin/Breast Denies bleeding lesions, Denies changing lesions and Denies rash Physical exam (Primary Care) Vital Signs: Last Vital Signs BP 148/92 H 03/28/25 11:19 BMI result Body Mass Index 35.2 BMI Assessment/Plan discussion: High BMI High, discussed plan: lifestyle, weight reduction, dietary and physical activity Tobacco/Smoking Status: Tobacco use Status Tobacco use date assessed 12/20/24 03/28/25 11:22 Patient Tobacco Use Status Never used Tobacco 03/28/25 11:22 e-Cigarette/Vaping Use Never Used 03/28/25 11:22 PHQ-9: PHQ-9 Score PHQ-9: Total score 10 03/28/25 11:22 Depression Screening Interpretation: Positive Depression Screening Follow-up: Existing condition and Follow-up Visit Requested Thrive Assessment: Date of Thrive Assessment Date Thrive assessed 03/28/25 03/28/25 11:22 Currently or been in a relationship where the following occur: No concerns reported Resp Effort & Inspection: normal respiratory effort Auscultation: clear to auscultation bilaterally Cardio Jugular venous distension: no JVD Rate: regular rate Rhythm: regular rhythm Heart sounds: S1 normal heart sound present and S2 normal heart sound present Extrem General: Yes full ROM Coding Level of Care Code Est Pt Level 4 (89663) Complex EM visit Add On G2211 Diagnoses Mild major depression F32.0 Essential hypertension I10 Fibromyalgia M79.7 NAFLD (nonalcoholic fatty liver disease) K76.0 Wrist pain M25.539 Screen for colon cancer Z12.11 Insomnia G47.00 Additional Codes PHQ-9 - 97190 - PHQ-9 Billing: Yes ([id number]) JYOTSNA-7 Assessment Billing - JYOTSNA-7 Assessment Tool: JYOTSNA-7 Assessment 55409 ([id number]) Time Spent (min) 25 Assessment & Plan Assessment & Plan (1) Mild major depression: Code(s): F32.0 - Major depressive disorder, single episode, mild Category: Medical (2) Essential hypertension: Code(s): I10 - Essential (primary) hypertension Category: Medical (3) Fibromyalgia: Code(s): M79.7 - Fibromyalgia Category: Medical (4) NAFLD (nonalcoholic fatty liver disease): Code(s): K76.0 - Fatty (change of) liver, not elsewhere classified Category: Medical (5) Wrist pain: Code(s): M25.539 - Pain in unspecified wrist Category: Medical (6) Screen for colon cancer: Code(s): Z12.11 - Encounter for screening for malignant neoplasm of colon Category: Medical (7) Insomnia: Code(s): G47.00 - Insomnia, unspecified Category: Medical Plan A low-dose antihypertensive medication is recommended due to uncontrolled hypertension despite dietary efforts. The dual-acting bupropion will be initiated for depression and sleep issues, providing potential weight management benefits. Referral follow-up regarding hand pain is imperative, considering fibromyalgia history. Continued blood pressure monitoring is advised. Colonoscopy scheduling at [facility] has been recommended for convenience. Patient was informed and verbally consented to the use of an ambient scribe for clinic note documentation during this visit. I discussed the necessity of managing her hypertension with medication, emphasizing the prevention of long-term complications such as cardiovascular disease. Acknowledging her insomnia and mental health challenges, I suggested bupropion to address mild depression and potentially aid sleep, explaining its profile and typically minor side effects. Health improvements from the proposed interventions were highlighted. For her fibromyalgia symptoms, ongoing referral details were highlighted, with advice on tracking symptom changes. Plans include a follow-up including updated diagnostics where necessary, to ensure comprehensive understanding for appropriate management. Colonoscopy options regarding location were confirmed, aligned with patient preference. Orders: Orders Liver Panel Today K76.0 - Fatty (change of) liver, not elsewhere classified Referrals Gastroenterology Referral Z12.11 - Encounter for screening for malignant neoplasm of colon Medications: New bupropion HCl XL 150 mg PO QAM 90 days 90 tabs 0RF lisinopril 5 mg PO DAILY 90 days 90 tabs 1RF I10 - Essential (primary) hypertension Patient Instructions: - Begin low-dose medication for blood pressure. - Take bupropion each morning. - Monitor blood pressure twice a week. - Avoid large crowds to limit fibromyalgia flare-ups. - Schedule the colonoscopy at [facility]. - Return to the clinic if you experience any new concerning symptoms or side effects.
[2025-03-28 11:19] VITALS: BP 148/92; BMI 35.2
--- OUTSIDE RECORDS SUMMARY | 2025-03-28 12:39 | XMS_ITS | Clinical Summary ---
Author Organization [email or web address] Address [address] [place] [address] Care Team Providers Care Senior Sustainability Consultant Name Role Phone Baldo Hamlin MD Primary [...] age to complete this topic Care Teams Senior Sustainability Consultant Relationship Specialty Start Date End Date Baldo Hamlin MD [address] [place] [id number] PCP - General Internal Medicine 11/29/20
--- OUTSIDE RECORDS SUMMARY | 2025-03-28 12:39 | XMS_ITS | Encounter Summary ---
Author Organization [employer] Address [address] [place] [address] Care Team Providers Care Specialty Plant Supervisor Name Role Phone Baldo Hamlin MD Primary Care Prov ider Reason for Visit * Reason Comments Med Refill Encounter Details Date Type Department Care Team ([facility] st Contact Info) Description 11/24/2023 Refill [facility] [address] [place] [address] Baldo Hamlin MD [address] [place] [address] Social History Tobacco Use Types Packs/Day Years Used Date Smoking Tobacco: Never Assessed Comments Unknown Sex and Gender Information Value Date Recorded Sex Assigned at Female 09/15/2022 10:16 AM EDT Legal Sex Female 10:16 AM EDT Gender Identity Choose not to disclose 10:16 AM EDT Sexual Orientation Choose not to disclose 2021 10:16 AM EDT documented as of this encounter Plan of Treatment Not on file documented as of this encounter Visit Diagnoses Not on filedocumented in this encounter Care Teams Specialty Plant Supervisor Relationship Specialty Start Date End Date Baldo Hamlin MD [address] [place] [address] PCP - General Internal Medicine 11/29/20 documented as of this encounter
== END 2025-03-28 11:44 | disposition home or self-care (01) ==
LOC: HO.HMCH 11:11
PROVIDERS: PCP Internal Medicine; Visit Provider Internal Medicine
DX: F32.0 Major depressive disorder, single episode, mild (principal); I10 Essential (primary) hypertension; M79.7 Fibromyalgia; K76.0 Fatty (change of) liver, not elsewhere classified; M25.539 Pain in unspecified wrist; Z12.11 Encounter for screening for malignant neoplasm of colon; G47.00 Insomnia, unspecified

== ENCOUNTER 2025-03-28 12:53 | Outpatient (REF) | payer OTHER, SELFPAY ==
--- NOTE | ~2025-03-28 | US_ITS ---
CLINICAL HISTORY: D25.9 - Leiomyoma of uterus, unspecified US pelvis transabdominal and transvaginal with Doppler Comparison: None Findings: Transabdominal scanning performed for overall anatomy. Transvaginal scanning performed for additional detail. Anteverted uterus is 7.2 cm length. Fundal fibroid measuring 33 mm is present as before. Right superior uterine fibroid measuring 31 mm is present, as before. Left superior uterine fibroid measuring 58 mm is present, as before. No endometrial lesion, 3 mm thickness. Right ovary 2.4 x 1.0 x 1.1 cm. Left ovary 1.9 x 1.3 x 1.2 cm. Normal color Doppler with arterial/venous spectral tracing of both ovaries. No free fluid. IMPRESSION: 1. No acute process. 2. Stable uterine fibroids. This document has been electronically signed by: Barbara Morel MD on 03/28/2025 16:26:11
--- OUTSIDE RECORDS SUMMARY | 2025-03-28 13:57 | XMS_ITS | Encounter Summary ---
Author Organization [employer] Address [address] [facility] [address] [place] [address] Care Team Providers Care Candy Department Manager Name Role Phone Baldo Hamlin MD Primary Care Prov ider Reason for Visit * Reason Comments Med Refill Encounter Details Date Type Department Care Team ([facility] st Contact Info) Description 11/24/2023 Refill C [facility] [address] [place] [address] Baldo Hamlin MD [address] [place] [address] Social History Tobacco Use Types Packs/Day Years [...] on filedocumented in this encounter Care Teams Candy Department Manager Relationship Specialty Start Date End Date Baldo Hamlin MD [address] [place] [address] PCP - General Internal Medicine 11/29/20 documented as of this encounter
--- OUTSIDE RECORDS SUMMARY | 2025-03-28 13:57 | XMS_ITS | Clinical Summary ---
Author Organization [employer] Address [address] [facility] [address] [place] [address] Care Team Providers Care Orthopedic Cast Specialist Name Role Phone Baldo Hamlin MD Primary [...] age to complete this topic Care Teams Orthopedic Cast Specialist Relationship Specialty Start Date End Date Baldo Hamlin MD [address] [place] [id number] PCP - General Internal Medicine 11/29/20
== END 2025-03-28 12:54 | disposition home or self-care (01) ==
LOC: HO.US 12:53
PROVIDERS: PCP Internal Medicine; Visit Provider Obstetrics & Gynecology
DX: D25.9 Leiomyoma of uterus, unspecified (principal)
CPT/HCPCS: 76830; 76856; 96127

== ENCOUNTER → 2025-03-28 12:54 | Outpatient (BNV) | payer OTHER, SELFPAY | PROVIDERS: PCP Internal Medicine; Visit Provider Radiology Diagnostic Radiology | DX: D25.9 Leiomyoma of uterus, unspecified (principal) | CPT/HCPCS: 76830; 76856 ==

== ENCOUNTER 2025-04-26 13:49 | Outpatient (AMB) | payer OTHER, SELFPAY ==
--- NOTE | 2025-04-26 13:49 | A.OFFVIS_ITS ---
Intake Visit Reasons: Ultrasound follow up Allergies codeine Adverse Reaction (Intermediate, Verified 03/28/25 11:34) chills sertraline Adverse Reaction (Intermediate, Verified 03/28/25 11:34) severe depression, suicidal thoughts HPI Comments Details: The patient scheduled a telehealth visit for follow-up ultrasound regarding uterine myoma seen on previous pelvic ultrasound. The patient is doing well with no complaints no abnormal uterine bleeding, pelvic pressure or pain. Pelvic ultrasound done recently showed the following: Anteverted uterus is 7.2 cm length. Fundal fibroid measuring 33 mm is present as before. Right superior uterine fibroid measuring 31 mm is present, as before. Left superior uterine fibroid measuring 58 mm is present, as before. No endometrial lesion, 3 mm thickness. Right ovary 2.4 x 1.0 x 1.1 cm. Left ovary 1.9 x 1.3 x 1.2 cm. Normal color Doppler with arterial/venous spectral tracing of both ovaries. No free fluid. [facility] Medical History Severe depression GERD (gastroesophageal reflux disease) Surgical History Hx of cataract removal with insertion of prosthetic lens History of cholecystectomy History of tubal ligation Family History Father Diabetes Hypertension Stroke Heart murmur Colon polyps Mother Diabetes Hypertension Bursitis Tendonitis Arthritis Brain aneurysm Paternal Grandmother Colon cancer Social History Housing: House Alcohol intake: current Alcohol intake frequency: holidays/special occasions only Alcohol type: other Patient Tobacco Use Status: Never used Tobacco e-Cigarette/Vaping Use: Never Used Second Hand Smoke Exposure: No service: No Current occupational status: employed Current occupational exposures/hazards: No Cognitive needs: No Hearing needs: No Vision needs: Yes Review of Systems Const All systems reviewed & are unremarkable except as noted in HPI and below Reports as per HPI and Reports no additional complaints GI Reports no additional complaints Reports no additional complaints Telehealth Telehealth Telehealth Platform: [facility] Location of provider rendering services: practice address Location of patient: address on file Patient Identification confirmed using: Name, : Yes Telehealth method: video Patient verbally consented to treatment: Yes Patient verbally consented to billing insurance company: Yes Patient informed of any privacy concerns related to visit: Yes Minutes spent on Phone/Video with Pt.: 2 Assessment & Plan Assessment & Plan (1) Uterine myoma: Code(s): D25.9 - Leiomyoma of uterus, unspecified Category: Medical Plan: Discussed with the patient the findings on pelvic ultrasound & the risk of myosarcoma; in addition reviewed with the patient that malignancy and pre malignancy cannot be ruled out without hysterectomy for pathological evaluation ; furthermore, explained to the patient the limitation of pelvic ultrasound and endometrial biopsy in the setting. Discussed with the patient the options of treatment including expectant management versus hysterectomy; the pros and cons, risks benefits of each approach were discussed with the patient including the fact that in cases of myosarcoma, surgical treatment can lead to early diagnosis and positively affects the prognosis; after further discussion, the patient decided to proceed with expectant management. Will repeat pelvic ultrasound periodically. Instructions given to patient to call in case any of the following occurs: pressure symptoms, abnormal uterine bleeding, pelvic pain; and to schedule a 12 months pelvic ultrasound (order placed) and a follow-up appointment . All questions answered, the patient verbalized understanding and agreed with the plan . I spent a total of 20 minutes reviewing the chart, talking to the patient via video and documenting in the medical record. Orders: Orders US pelvic and transvaginal 1 Year D25.9 - Leiomyoma of uterus, unspecified Coding Level of Care Code Tele Est Pt Level 3 (72090) Diagnoses Uterine myoma D25.9
--- OUTSIDE RECORDS SUMMARY | 2025-04-26 15:42 | XMS_ITS | Clinical Summary ---
Author Organization [address] [facility] Address [address] [place] [address] Phone Care Team Providers Care Jig And Fixture Builder Apprentice Name Role Phone Claire Rodriguez MD Primary Care Provider [phone] Allergies Active Allergy Reactions Criticality Noted Date Comments Codeine Chills 03/28/2025 Sertraline Psychiatric 03/28/2025 Severe depression, suicidal thoughts Medications cholestyramine (QUESTRAN) 4 gram packet Take 1 packet (4 g total) by mouth 2 (two) times a day with meals. Active gabapentin (NEURONTIN) 400 mg capsule Take 1 capsule (400 mg total) by mouth 3 (three) times a day. Active hydrOXYzine HCL (ATARAX) 25 mg tablet Take 1 tablet (25 mg total) by mouth at bedtime. Active omeprazole (PriLOSEC) [address] capsule Take 1 capsule (20 mg total) by mouth 1 (one) time each day. Do not crush or chew. Active triamcinolone (KENALOG) 0.1 % cream Apply topically 2 (two) times a day. Active lisinopriL (PRINIVIL,ZESTR IL) 5 mg tablet Take 1 tablet (5 mg total) by mouth 1 (one) time each day. Active buPROPion XL (WELLBUTRIN XL) 150 mg 24 hr tablet Take 1 tablet (150 mg total) by mouth 1 (one) time each day. Do not crush, chew, or split. Active Encounters Date Type Department Care Team Description 03/28/2025 Telephone Gastroenterology [facility] [address] [phone] Addie Vasquez MD SPECIAL PROCEDURE from Last 3 Months Social History Tobacco Use Types Packs/Day Years Used Date Smoking Tobacco: Never Assessed Comments Unknown Sex and Gender Information Value Date Recorded Sex Assigned at Not on file Legal Sex Female 2:35 PM EDT Gender Identity Not on file Sexual Orientation Not on file Plan of Treatment Upcoming Encounters Date Type Department Care Team (Late st Contact Info) Description 06/26/2025 9:30 AM EDT Appointment [facility] Endoscopy [address] [place] [phone] Mariusz Greco DO [address] [facility] [place] [address] [place] [address] Health Maintenance Due Date Last Done Comments Breast Cancer Screening 1962 DTaP,Tdap,and Td Vaccines (1 - Tdap) 1981 Cervical Cancer Screening: P ap Smear 1983 Pneumococcal Vaccine: 50+ Ye ars (1 of 1 - PCV) 2012 Zoster Vaccines (1 of 2) 2012 COVID-19 Vaccine ( - 2023-2 5 season) 2024 Colorectal Cancer Screening: Colonoscopy 03/29/2025 Depression Screening 03/29/2025 HIV Screening 03/29/2025 Hepatitis C Screening 03/29/2025 Social Influencers of Health Screening 03/29/2025 Influenza Vaccine (Season Ended) 2025 RSV Immunization Adult Patie nts (1 - 1-dose 75+ series) 2037 HIB [...] on patient's age to complete this topic MMR Vaccines Aged Out No longer eligi ble based on patient's age to complete this topic Meningococcal ACWY Vaccine Aged Out N o longer eligible based on patient's age to complete this topic Meningococcal B Vaccine Aged Out No l onger eligible based on patient's age to complete this topic Pneumococcal Vaccine: Pediat rics (0 to 5 Years) and At-Risk Patients (6 to 64 Years) Aged Out No longer eligible b ased on patient's age to complete this topic RSV Immunization Patients Un yinka 20 months Aged Out No longer eligible b ased on patient's age to complete this topic Varicella Vaccines Aged Out No longer eligible based on patient's age to complete this topic Insurance [place] [address] [place] [address] [employer] [facility] Care Teams Jig And Fixture Builder Apprentice Relationship Specialty Start Date End Date Claire Rodriguez MD [address] [place] [address] , [address] [facility] D/B/A: [facility] TANI Lagunas PCP - General Internal Medicine 03/28/25
== END 2025-04-26 14:36 | disposition home or self-care (01) ==
LOC: HO.HWS 13:49
PROVIDERS: PCP Internal Medicine; Visit Provider Obstetrics & Gynecology
DX: D25.9 Leiomyoma of uterus, unspecified (principal)
CPT/HCPCS: 99213

== ENCOUNTER 2025-05-02 13:19 | Outpatient (AMB) | payer OTHER, SELFPAY ==
--- NOTE | 2025-05-02 13:23 | MHC.OFFVIS ---
Intake Visit Reasons: STD tests Senior Naval Parachutist: Senior Naval Parachutist Present (Brandy) Accompanied by: Self / Same As Patient Allergies codeine Adverse Reaction (Intermediate, Verified 05/02/25 13:26) chills sertraline Adverse Reaction (Intermediate, Verified 05/02/25 13:26) severe depression, suicidal thoughts HPI Comments Details: The patient is presenting for sexually transmitted disease screen, no vaginal discharge, no lesions identified and no specific sexually transmitted disease exposure according to the patient. [facility] Medical History Severe depression GERD (gastroesophageal reflux disease) Surgical History Hx of cataract removal with insertion of prosthetic lens History of cholecystectomy History of tubal ligation Family History Father Diabetes Hypertension Stroke Heart murmur Colon polyps Mother Diabetes Hypertension Bursitis Tendonitis Arthritis Brain aneurysm Paternal Grandmother Colon cancer Social History Housing: House Alcohol intake: current Alcohol intake frequency: holidays/special occasions only Alcohol type: other Patient Tobacco Use Status: Never used Tobacco e-Cigarette/Vaping Use: Never Used Second Hand Smoke Exposure: No service: No Current occupational status: employed Current occupational exposures/hazards: No Cognitive needs: No Hearing needs: No Vision needs: Yes Review of Systems Const All systems reviewed & are unremarkable except as noted in HPI and below Physical Exam General: Yes no CVA tenderness External Female Exam: normal external appearance and normal appearance of the urethra Speculum Exam - Vagina: normal appearance of the vagina, normal palpation, no lesions and no masses Speculum Exam - Cervix: normal appearance of the cervix, normal palpation, no lesions, no masses and nontender Bimanual exam- vagina & uterus: normal bimanual exam, normal palpation, uterine size normal, normal palpation, uterine shape normal, No Cervical tenderness present and non-tender Bimanual Exam- Adnexa, other: normal adnexae Back/Spine/Pelvis Back: no CVA tenderness Assessment & Plan Assessment & Plan (1) Screen for STD (sexually transmitted disease): Code(s): Z11.3 - Encounter for screening for infections with a predominantly sexual mode of transmission Category: Medical Plan: STD screening tests done includes: BV panel for trichomonas, GC/CT will send patient for serology std screening for HIV, RPR, Hep b s Ag, HepC Ab. Instructions given the patient to schedule a follow-up appointment for repeat serology screen in 6 months for possible false negatives. Orders: Orders Hepatitis C Antibody Today Z20.2 - Contact with and (suspected) exposure to infections with a predominantly sexual mode of transmission HIV Ab/Ag Today Z20.2 - Contact with and (suspected) exposure to infections with a predominantly sexual mode of transmission Syphilis Screen Today Z20.2 - Contact with and (suspected) exposure to infections with a predominantly sexual mode of transmission Hepatitis B Surface Antigen Today Z20.2 - Contact with and (suspected) exposure to infections with a predominantly sexual mode of transmission Coding Level of Care Code Est Pt Level 4 (10790) Diagnoses Screen for STD (sexually transmitted disease) Z11.3
--- OUTSIDE RECORDS SUMMARY | 2025-05-02 15:12 | XMS_ITS | Clinical Summary ---
Author Organization [address] [facility] Address [address] [place] [address] Phone Care Team Providers Care Audio Production Manager Name Role Phone Claire Rodriguez MD Primary Care Provider [phone] Allergies Active Allergy Reactions Criticality Noted Date [...] Department Care Team Description 03/28/2025 Telephone Gastroenterology [facility] [address] [phone] Addie Vasquez MD SPECIAL PROCEDURE [...] Info) Description 06/26/2025 9:30 AM EDT Appointment [facility] Endoscopy [address] [place] [phone] Mariusz Greco DO 175 [facility] [place] [address] [place] [address] Health Maintenance Due Date Last Done Comments [...] patient's age to complete this topic [place] [place] [address] [facility] Care Teams Audio Production Manager Relationship Specialty Start Date End Date Claire Rodriguez MD [address] [place] [address] , [address] [facility] D/B/A: [facility] TANI Lagunas PCP - General Internal Medicine 03/28/25
== END 2025-05-02 13:35 | disposition home or self-care (01) ==
LOC: HO.HWS 13:19
PROVIDERS: PCP Internal Medicine; Visit Provider Obstetrics & Gynecology
DX: Z11.3 Encounter for screening for infections with a predominantly sexual mode of transmission (principal)
CPT/HCPCS: 99214

== ENCOUNTER 2025-05-02 13:19 | Outpatient (REF) | payer OTHER, SELFPAY ==
[2025-05-02 14:33] LABS: Hematocrit 39.1 % (37.0-47.0); Mean Corpuscular HGB Conc 30.7 g/dl (31.0-35.0); Mean Corpuscular Hemoglobin 21.4 pg (27.0-33.0); Mean Corpuscular Volume 69.7 fL (80.0-98.0); Mean Platelet Volume 9.7 fL (9.4-12.3); Platelet Count 317 X10*3/uL (160-400); Red Blood Count 5.61 X10*6/uL (4.20-5.50); Red Cell Distribution Width 18.6 % (11.0-16.0); White Blood Count 5.9 X10*3/uL (4.8-10.8)
[2025-05-02 15:18] LABS: TSH reflex Free T4 1.52 uIU/mL (0.32-4.0)
[2025-05-02 16:25] LABS: Bacterial Vaginosis PCR NEGATIVE (Negative); Candida Group PCR NOT DETECTED (Not Detect); Candida glab krusei PCR NOT DETECTED (Not Detect); Trichomonas vaginalis PCR NOT DETECTED (Not Detect)
[2025-05-02 16:57] LABS: CT PCR NOT DETECTED (Not Detect.); NG PCR NOT DETECTED (Not Detect.)
[2025-05-03 02:53] LABS: Syphilis Screen Nonreactive (Nonreactive)
[2025-05-03 06:05] LABS: HBsAGNum1 0.31 S/CO (0.00-0.99); HIV AB/AG Nonreactive (Nonreactive); HIV Num 1 0.07 S/CO (0.00-0.99); Hepatitis B Surface Antigen Negative (Negative); ~HepC Num1 0.09 S/CO (0.00-0.79); ~Hepatitis C Antibody Nonreactive (Nonreactive)
== END 2025-05-02 13:20 | disposition home or self-care (01) ==
LOC: HO.LAB 13:19
PROVIDERS: PCP Internal Medicine; Visit Provider Obstetrics & Gynecology
DX: R53.83 Other fatigue (principal); Z20.2 Contact with and (suspected) exposure to infections with a predominantly sexual mode of transmission; Z11.3 Encounter for screening for infections with a predominantly sexual mode of transmission
CPT/HCPCS: 36415; 81515; 84443; 85027; 86780; 86803; 87340; 87389; 87491; 87591

== ENCOUNTER 2025-05-02 13:55 | Outpatient (REF) | payer OTHER, SELFPAY | END 2025-05-02 13:56 | disposition home or self-care (01) | LOC: HO.LNP 13:55 | PROVIDERS: Visit Provider Obstetrics & Gynecology | DX: Z13.89 Encounter for screening for other disorder (principal) ==

== ENCOUNTER 2025-10-10 12:40 | Outpatient (AMB) | payer OTHER, SELFPAY ==
--- NOTE | 2025-10-10 12:51 | MHC.PC.OV ---
Vital Signs 10/10/25 12:52 Height 5 ft 9.5 in Weight 251 lb 6 oz BMI 36.6 BP 122/70 Blood Pressure Location Rt brachial Position Sitting Pulse 56 Pulse Source Pulse Oximeter Temp 97.1 F Temp Source Temporal Artery Scan Pulse Oximetry (%) 93 Oxygen Delivery Method Room Air Intake Visit Reasons: Annual exam Intake Note: Patient is here today for a physical. Enterprise Systems Administrator Required: No Equity Holder: Not Required per policy Accompanied by: Self / Same As Patient Allergies codeine Adverse Reaction (Intermediate, Verified 10/10/25 13:03) chills sertraline Adverse Reaction (Intermediate, Verified 10/10/25 13:03) severe depression, suicidal thoughts Medication List - Last Reconciled 10/10/25 by Claire Rodriguez MD bupropion HCl XL 150 mg PO QAM 90 days cholestyramine (with sugar) 4 gram 4 grams PO BID PRN 30 days gabapentin 400 mg PO TID 30 days hydroxyzine HCl 25 mg PO BEDTIME lisinopril 5 mg PO DAILY 90 days omeprazole 20 mg PO DAILY triamcinolone acetonide 0.1% 1 appl topical BID Tobacco use date assessed: 10/10/25 Dental Screening Dental Screen Date: 12/20/24 HPI HPI Comments History of Present Illness Details The patient is a 65 year old individual presenting for a physical exam. The patient's current medications include gabapentin, hydroxyzine, lisinopril 5 mg, and omeprazole. The patient has a history of fibromyalgia, for which the patient takes gabapentin. Symptoms worsen during the winter. The patient reports a recent onset of a choking sensation and a dry cough, which the patient believes may be related to the high blood pressure medication, lisinopril. This symptom is not associated with eating. The patient's past surgical history is significant for cataract surgery, cholecystectomy, and a tubal ligation. The patient's father is and had a history of colon polyps, diabetes, hypertension, and a stroke. The patient's mother is alive and has a history of arthritis and a cerebral aneurysm. A discussion was held regarding a tetanus vaccine. The patient needs to schedule a bone densitometry scan, as it has not been done in years. Lab orders will be sent to [facility], and a referral will be made to [facility] as per the patient's request for colon cancer screening. Up-to-date with mammogram done this year. Pap smear was last year. [facility] Medical History Severe depression GERD (gastroesophageal reflux disease) Surgical History Hx of cataract removal with insertion of prosthetic lens History of cholecystectomy History of tubal ligation Family History Father Diabetes Hypertension Stroke Heart murmur Colon polyps Mother Diabetes Hypertension Bursitis Tendonitis Arthritis Brain aneurysm Paternal Grandmother Colon cancer Social History Housing: House Alcohol intake: current Alcohol intake frequency: holidays/special occasions only Alcohol type: other Patient Tobacco Use Status: Never used Tobacco e-Cigarette/Vaping Use: Never Used Second Hand Smoke Exposure: No service: No Current occupational status: employed Current occupational exposures/hazards: No Cognitive needs: No Hearing needs: No Vision needs: Yes Questionnaire Thrive Questionnaire Date Thrive assessed: 03/28/25 I am a: Patient What is your living situation today?: I have a steady place to live Within the past 12 months, did the food you bought not last and you didn't have the money to get more?: Never true Within the past 12 months, did you worry whether your food would run out before you got money to buy more?: I choose not to answer this question Do you have trouble paying for medicines?: I choose not to answer this question Do you have trouble getting transportation to medical appointments?: I choose not to answer this question Do you have trouble paying your heating and electricity bill?: I choose not to answer this question Do you have trouble taking care of your child, family member or friend?: I choose not to answer this question Do you have trouble with day-to-day activities such as bathing, preparing meals, shopping, managing finances, etc.?: I choose not to answer this question Are you currently unemployed and looking for a job?: I choose not to answer this question Are you interested in more education?: Yes Please select the resources that you would like help with: Job search/training Currently or been in a relationship where the following occur: No concerns reported THRIVE Score: 0 JYOTSNA-7 AMB Questionnaire JYOTSNA-7 Date JYOTSNA - 7 assessed: 03/28/25 Source: Developed by Drs. Ronak Hull, Calista Bolden, Karlo Palma and colleagues, with an educational robby from [employer]. Review of Systems Const All systems reviewed & are unremarkable except as noted in HPI and below Card Denies chest pain at rest, Denies chest pain with activity, Denies edema, Denies irregular heart rhythm, Denies claudication, Denies dyspnea, Denies dyspnea on exertion, Denies orthopnea, Denies paroxysmal nocturnal dyspnea and Denies slow heart rate Resp Denies cough, Denies dyspnea and Denies dyspnea on exertion GI Denies abdominal pain, Denies change in bowel habits, Denies excessive flatus, Denies nausea and Denies vomiting Neuro Denies lack of coordination Physical exam (Primary Care) Vital Signs: Last Vital Signs Temp 97.1 F 10/10/25 12:52 Pulse 56 10/10/25 12:52 BP 122/70 10/10/25 12:52 Pulse Ox 93 10/10/25 12:52 Oxygen Delivery Method Room Air 10/10/25 12:52 BMI result Body Mass Index 36.6 BMI Assessment/Plan discussion: High BMI High, discussed plan: lifestyle, weight reduction, dietary and physical activity Tobacco/Smoking Status: Tobacco use Status Tobacco use date assessed 10/10/25 10/10/25 12:57 Patient Tobacco Use Status Never used Tobacco 10/10/25 12:57 e-Cigarette/Vaping Use Never Used 10/10/25 12:57 Thrive Assessment: Date of Thrive Assessment Date Thrive assessed 03/28/25 10/10/25 12:57 Currently or been in a relationship where the following occur: No concerns reported HENMT Head: Yes normal to inspection, Yes normocephalic and Yes atraumatic Ears: external ears normal Eyes General: appearance normal, both eyes and all related structures Eyelids: Yes eyelids normal Conjunctivae: conjunctivae normal Neck Neck: Yes normal visual inspection and Yes supple Resp Effort & Inspection: normal respiratory effort Auscultation: clear to auscultation bilaterally Cardio Jugular venous distension: no JVD Rate: regular rate Rhythm: regular rhythm Heart sounds: S1 normal heart sound present and S2 normal heart sound present GI Inspection: Yes normal to inspection Palpation (GI): Soft to palpation and nontender Auscultation: normal bowel sounds Skin General skin exam: no rashes or lesions noted Neuro General: no focal motor deficits Extrem General: Yes full ROM Psych Appearance: grossly normal Immunizations Boostrix Tdap 2.5 Lf unit-8 mcg-5 Lf/0.5 mL intramuscular syringe Performing Provider: Claire Rodriguez MD Performing Location: [facility] [facility] Administered by: [place] Lieberman CMA on 10/10/25 13:44 Dose Route Admin Location Dispensed Lot Number Expiration Date NDC Director Group Sales 0.5 mL IM Left Deltoid 0.5 mL [id number] 05/01/28 [id number] [employer] Total Dispensed Waste 0.5 mL 0 % VIS Given Date VIS Provided VIS Publication Date 10/10/25 Single Vaccine 21 Eligibility Eligibility Date Funding Source Not [facility] Eligible 10/10/25 Private Coding Level of Care Code Est Pt Level 3 (77922) Est Pt Prev Care 40-64y(21118) Diagnoses Physical exam Z00.00 Fibromyalgia M79.7 Mild major depression F32.0 Essential hypertension I10 Time Spent (min) 31 Assessment & Plan Assessment & Plan (1) Physical exam: Code(s): Z00.00 - Encounter for general adult medical examination without abnormal findings Category: Medical (2) Fibromyalgia: Code(s): M79.7 - Fibromyalgia Category: Medical (3) Mild major depression: Code(s): F32.0 - Major depressive disorder, single episode, mild Category: Medical (4) Essential hypertension: Code(s): I10 - Essential (primary) hypertension Category: Medical Plan Plan 1. Physical exam Repeat in a year. Tdap vaccine will be done today. 2. Mild major depression Continue bupropion. 3. Fibromyalgia The patient's fibromyalgia symptoms worsen in the winter. The plan is to increase the gabapentin dosage to 600 mg. 4. Hypertension And Medication-Induced Cough The patient reports a new choking sensation and dry cough, which may be an adverse effect of the current antihypertensive medication, lisinopril. The plan is to switch to an alternative antihypertensive medication for a one-month trial. If the symptom persists after one month, further investigation will be pursued. Orders: Orders Lipid Panel Today E78.5 - Hyperlipidemia, unspecified, I10 - Essential (primary) hypertension CLAIRE Reflex Titer and Pattern Today M25.539 - Pain in unspecified wrist XR DEXA axial skeleton Today Z78.0 - Asymptomatic menopausal state Comprehensive [place]. Panel Fast Today I10 - Essential (primary) hypertension UA CC w/rflx Micro + Cult Today R30.0 - Dysuria TDaP Immunization Today Z23 - Encounter for immunization Referrals Gastroenterology Referral Z12.11 - Encounter for screening for malignant neoplasm of colon Medications: New hydrochlorothiazide 12.5 mg PO DAILY 90 tabs 1RF 90 days gabapentin 600 mg PO TID 90 tabs 0RF 30 days Changed From omeprazole 20 mg PO DAILY To omeprazole 20 mg PO DAILY 90 caps 1RF 90 days Refilled cholestyramine (with sugar) 4 gram administer w/meal; avoid other meds within 1hr before or 4-6hr after dose 4 grams PO BID PRN 348.6 grams 0RF diarrhea 30 days bupropion HCl XL 150 mg PO QAM 90 tabs 0RF 90 days hydroxyzine HCl 25 mg PO BEDTIME 14 tabs 0RF triamcinolone acetonide 0.1% 1 appl topical BID 30 grams 0RF Discontinued gabapentin Discontinued Reason: Patient Completed Course 400 mg PO TID 30 days 90 caps 3RF lisinopril Discontinued Reason: Patient Completed Course 5 mg PO DAILY 90 days 90 tabs 1RF I10 - Essential (primary) hypertension
[2025-10-10 12:52] VITALS: BP 122/70; PULSE 56; TEMP 36.2; O2SAT 93; BMI 36.6
--- OUTSIDE RECORDS SUMMARY | 2025-10-10 16:13 | XMS_ITS | Patient Health Record ---
[facility] Address [address] [place] [address] Care Team Providers Care Pre Billing Specialist Name Role Phone Freedom Catalan MD Primary Care Provider Ward Whitman Unavailable [phone] Allergies Allergen (clinical drug ingredient) Drug/Non Drug Allergy documented on EMR Reaction Allergy Type Onset Date Status codeine Codeine feel TERRIBLE Drug Allergy Act rodríguez Reason For Referral No Information Medications Medication SIG (Take, Route, Frequency, Duration) Notes Start Date End Date Status Gabapentin Unknown Venlafaxine HCl ER 150 MG 1 tablet with food Orally Once a day 03/29/2015 Unknown Furosemide 20 MG 1 tablet Orally Once a day 03/29/2015 Unknown Social History Tobacco use other than smoking: Question Answer Notes Are you an other tobacco user? 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.73) Active confirmed Problem Edema (98571927) Edema (782.3) Active confirmed Problem Plantar fasciitis (611400148) Plantar Fasciitis (728.71) Active confirmed Plan Of Treatment No Information Insurance Providers Payer Name Payer Address Payer Phone Subscriber Number Group Number Insured Name Patient Relationship to Insured Coverage Start Date Coverage End Date [facility] [address] [facility] [place] [id number] Hal Pinedo Spouse - patient is the spouse of the insured Medical (General) History Medical History History ICD Code Arthritis Broken bones Fibromyalgia Gall bladder problems High blood pressure Surgical History Surgery Date(Month/Year) tubal ligation 2004 cholecystectomy 2009 fibroid removal 2009
--- OUTSIDE RECORDS SUMMARY | 2025-10-10 16:13 | XMS_ITS | Clinical Summary ---
Author Organization [address] [facility] Address [address] [place] [address] Phone Care Team Providers Care Commercial Print Salesman Name Role Phone Claire Rodriguez MD Primary Care Provider [phone] Allergies Active Allergy Reactions Criticality Noted Date [...] Do not crush, chew, or split. Active bisacodyL (DULCOLAX) 5 mg EC tablet Take 2 tablets by mouth right before beginning bowel prep. See instructions provided by the office 2 tablet 5 Active polyethylene glycol (Golytely) 236-22.74-6.74 -5.86 gram solution Take 4L by mouth once for one dose. May substitue any PEG. Starting at 2PM the day before your procedure drink 1 8oz glasses at your own pace until you complete half of the gallon. Finish 2nd half of the gallon at 8PM. 4000 mL 5 Active Social History Tobacco Use Types Packs/Day Years Used Date Smoking Tobacco: Never Assessed Comments Unknown Sex and Gender Information Value Date Recorded Sex Assigned at Female 06/09/2025 6:53 AM EDT Legal Sex Female 2:35 PM EDT Gender Identity Female 06/09/2025 6:53 AM EDT Sexual Orientation Not on file Plan of Treatment Health Maintenance Due Date Last Done Comments Breast Cancer Screening 1962 Colorectal Cancer Screening: Colonoscopy 1962 DTaP,Tdap,and Td Vaccines (1 - Tdap) 1981 Cervical Cancer Screening: P ap Smear 1983 Pneumococcal Vaccine: 50+ Ye ars (1 of 1 - PCV) 2012 Zoster Vaccines (1 of 2) 2012 Depression Screening 11/16/2024 HIV Screening 03/29/2025 Hepatitis C Screening 03/29/2025 Social Influencers of Health Screening 03/29/2025 COVID-19 Vaccine (1 - 2024-2 6 season) 2025 Influenza Vaccine (#1) 2025 RSV Immunization Adult Patie nts (1 [...] patient's age to complete this topic Insurance [employer] [facility] Care Teams Commercial Print Salesman Relationship Specialty Start Date End Date Claire Rodriguez MD [address] [place] [address] , [address] Physician Associ D/B/A: [facility] [place], [place] PCP - General Internal Medicine 03/28/25
== END 2025-10-10 13:38 | disposition home or self-care (01) ==
LOC: HO.HMCH 12:41
PROVIDERS: PCP Internal Medicine; Visit Provider Internal Medicine
DX: Z00.00 Encounter for general adult medical examination without abnormal findings (principal); M79.7 Fibromyalgia; F32.0 Major depressive disorder, single episode, mild; I10 Essential (primary) hypertension; Z23 Encounter for immunization

== ENCOUNTER → 2025-10-10 12:40 | Outpatient (BNVA) | payer OTHER, SELFPAY | PROVIDERS: PCP Internal Medicine; Visit Provider Internal Medicine | DX: Z00.00 Encounter for general adult medical examination without abnormal findings (principal); M79.7 Fibromyalgia; R09.89 Other specified symptoms and signs involving the circulatory and respiratory systems; F32.0 Major depressive disorder, single episode, mild; E78.5 Hyperlipidemia, unspecified; I10 Essential (primary) hypertension; Z23 Encounter for immunization; Z79.899 Other long term (current) drug therapy | CPT/HCPCS: 90471; 90715 ==